=== PATIENT | female | born 1965 | race Caucasian/White ===

== ENCOUNTER 2018-05-07 19:01 | Emergency (ER) | payer BC ==
[2018-05-07 20:41] LABS: Absolute Lymphocytes (CBC) 3.1 K/uL (0.7-4.9); Absolute Monocytes 0.6 K/uL (0.1-1.3); Absolute Neutrophil 5.8 K/uL (1.8-8.0); Basophils % 0.8 % (0-1.3); Eosinophils % 2.3 % (0-4.4); Hematocrit 41.8 % (36.0-45.0); Lymphocytes % 31.7 % (15.3-44.8); MCH 29.3 pg (27.0-35.0); MCV 87.4 fL (80-100); MPV 8.1 fL (7.6-11.3); Monocytes % 6.3 % (3.3-12.3); RBC Red Blood Cell Count 4.78 M/uL (3.86-4.86)
[2018-05-07 20:43] LABS: Protime INR 0.85
[2018-05-07 20:57] LABS: Urine Blood NEGATIVE (NEG); Urine Glucose NEGATIVE (NEG); Urine Protein NEGATIVE (NEG); Urine Specific Gravity >1.030 (1.005-1.030); Urine pH 5.5 (5.0-7.0)
[2018-05-07 21:00] LABS: Albumin 3.7 g/dL (3.4-5.0); Bilirubin Direct 0.1 mg/dL (0-0.2); Bilirubin Total 0.3 mg/dL (0.2-1.0); Magnesium 2.1 mg/dL (1.8-2.4); Potassium 3.6 mmol/L (3.5-5.1); Protein, Total 7.5 g/dL (6.4-8.2)
[2018-05-07 21:04] LABS: Urine Bacteria 20-50 /HPF (<20); Urine Culture Reflex Order REFLEXED; Urine RBC <5 /HPF (NONE SEEN)
--- NOTE | 2018-05-07 22:26 | RAD REPORT ---
EXAM DESCRIPTION: RAD - Chest Pa And Lat (2 Views) - 05/07/2018 9:55 pm CLINICAL HISTORY: Shortness of breath, inhalation injury COMPARISON: August 2010 TECHNIQUE: PA and lateral views of the chest were obtained. FINDINGS: The lungs are clear. Lung markings are mildly prominent as a baseline. Heart size is norm al and central vasculature is within normal limits. No pleural effusion or pneumothorax seen. No ac [place] bony finding noted. No aortic abnormality. IMPRESSION: No acute cardiopulmonary process. No significant change from comparison.
--- NOTE | 2018-05-07 23:26 | ER ---
Nurse's Notes [facility] Name: Pilar Preston Age: 53 yrs Sex: Female : 1965 Arrival Date: 05/07/2018 Time: 19:05 Bed 19 Private MD: Javier Renteria T Diagnosis: shortness of breath Presentation: 05/07 19:22 Presenting complaint: Patient states: Reports SOB and sore throat that started 1 week aj ago. Patient reports that she is worried she may have inhaled bathroom clearer fumes 1 week ago. Presented with 2 drinks to triage with steady gait. Voice is clear. Transition of care: patient was not received from another setting of care. Onset of symptoms was April 28, 2018. Risk Assessment: Do you want to hurt yourself or someone else? Patient reports no desire to harm self or others. Initial Sepsis Screen: Does the patient meet any 2 criteria? No. Patient's initial sepsis screen is negative. Does the patient have a suspected source of infection? No. Patient's initial sepsis screen is negative. Care prior to arrival: None. 19:22 Method Of Arrival: Ambulatory 19:22 Acuity: FRANKLIN 4 aj Triage Assessment: 19:23 General: Appears in no apparent distress. comfortable, Behavior is calm, cooperative, aj appropriate for age. Pain: Denies pain. Neuro: Level of Consciousness is awake, alert, obeys commands, Oriented to person, place, time, situation, Appropriate for age. Respiratory: Reports shortness of breath Airway is patent Respiratory effort is even, unlabored, Respiratory pattern is regular, symmetrical. Derm: Skin is intact, is healthy with good turgor, Skin is pink, warm \\T\\ dry. normal. 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 - Social history:: Smoking status: Patient uses tobacco products, smokes one-half pack cigarettes per day. - Ebola Screening: : Patient negative for fever greater than or equal to 101.5 degrees Fahrenheit, and additional compatible Ebola Virus Disease symptoms Patient denies exposure to infectious person Patient denies travel to an Ebola-affected area in the 21 days before illness onset No symptoms or risks identified at this time. Screenin:41 Abuse screen: Denies threats or abuse. Nutritional screening: No deficits noted. tl2 Tuberculosis screening: No symptoms or risk factors identified. Fall Risk None identified. Assessment: 19:30 General: Appears in no apparent distress. comfortable, Behavior is calm, cooperative, tl2 appropriate for age. General: Pt reports cleaning with [employer] 1 week ago and she feels like she may have chemical pneumonia. Denies pain or coughing, states "It just feels weird when I breathe". Pain: Denies pain. Neuro: Level of Consciousness is awake, alert, obeys commands, Oriented to person, place, time, situation. Cardiovascular: Denies chest pain, Heart tones S1 S2 present. Respiratory: Reports shortness of breath Airway is patent Respiratory effort is even, unlabored, Respiratory pattern is regular, symmetrical, Breath sounds are clear bilaterally. Denies cough, labored breathing. GI: No signs and/or symptoms were reported involving the gastrointestinal system. : No signs and/or symptoms were reported regarding the genitourinary system. Derm: Skin is pink, warm \\T\\ dry. 20:30 Reassessment: Patient appears in no apparent distress at this time. Patient and/or tl2 family updated on plan of care and expected duration. Pain level reassessed. Patient is alert, oriented x 3, equal unlabored respirations, skin warm/dry/pink. 21:34 Reassessment: Patient appears in no apparent distress at this time. Patient and/or tl2 family updated on plan of care and expected duration. Pain level reassessed. Patient is alert, oriented x 3, equal unlabored respirations, skin warm/dry/pink. awaiting lab results. 22:57 Reassessment: Patient appears in no apparent distress at this time. Patient and/or tl2 family updated on plan of care and expected duration. Pain level reassessed. Patient is alert, oriented x 3, equal unlabored respirations, skin warm/dry/pink. Pending dispo. 23:38 Reassessment: Patient appears in no apparent distress at this time. Patient and/or tl2 family updated on plan of care and expected duration. Pain level reassessed. Patient is alert, oriented x 3, equal unlabored respirations, skin warm/dry/pink. pt verbalized understanding of discharge instructions, need for follow up and prescription usage. Vital Signs: 19:23 BP 154 / 72; Pulse 85; Resp 20; Temp 97.0; Pulse Ox 98% on R/A; Weight 101.6 kg; Height aj 5 ft. 1 in. (154.94 cm); 20:45 BP 121 / 68; Pulse 68; Resp 18; Pulse Ox 98% on R/A; tl2 21:34 BP 107 / 72; Pulse 70; Resp 18; Pulse Ox 98% on R/A; tl2 22:57 BP 118 / 81; Pulse 72; Resp 18; Pulse Ox 97% on R/A; tl2 19:23 Body Mass Index 42.32 (101.60 kg, 154.94 cm) ED Course: 19:05 Patient arrived in ED. as 19:06 Javier Renteria MD is Private Physician. as 19:23 Triage completed. aj 19:23 Arm band placed on right wrist. Patient placed in an exam room. aj 19:30 Halley Srinivasan RN is Primary Nurse. tl2 19:35 Davidson Palmer MD is Attending Physician. wa 20:00 Inserted saline lock: 22 gauge in left antecubital area, using aseptic technique. Blood tl2 collected. 20:41 Patient has correct armband on for positive identification. Placed in gown. Bed in low tl2 position. Call light in reach. Side rails up X 1. Adult w/ patient. 21:47 X-ray completed. Patient tolerated procedure well. ml 21:48 Chest Pa And Lat (2 Views) XRAY In Process Unspecified. EDMS 23:25 Quinten Escobedo MD is Referral Physician. wa 23:38 No provider procedures requiring assistance completed. IV discontinued, intact, tl2 bleeding controlled, No redness/swelling at site. Pressure dressing applied. Administered Medications: No medications were administered Outcome: 23:25 Discharge ordered by . wa 23:38 Discharged to home ambulatory, with family. tl2 23:38 Condition: stable 23:38 Discharge instructions given to patient, family, Instructed on discharge instructions, follow up and referral plans. medication usage, Demonstrated understanding of instructions, follow-up care, medications, Prescriptions given X 1. 23:40 Patient left the ED. tl2 Signatures: Dispatcher [employer] Radha Petersen, ADITYA RN Patricia Abbott Melissa ml Knox, Taylor, RN RN tl2 Davidson Palmer MD MD wa
--- NOTE | 2018-05-07 23:26 | EDPHYS ---
Physician Documentation [facility] Name: Pilar Preston Age: 53 yrs Sex: Female : 1965 Arrival Date: 05/07/2018 Time: 19:05 Bed 19 Private MD: Javier Renteria T ED Physician Davidson Palmer HPI: 05/07 20:05 This 53 yrs old Female presents to ER via Ambulatory with complaints of Lung wa Pain. 20:05 The patient has shortness of breath at rest, with light activity, states inhaled strong wa household cleaning agent a week ago and has been experiencing burning in chest with breathing. today feels weak. feels like cannot get enough air. c/o needing the prop head up to sleep x several months as laying flat feels like something sitting on chest. also c/o dyspnea with minimal exertion but denies pain with exertion. denies cough, fever, or dizziness. denies chest pain at the moment. denies leg swelling or pain. Onset: The symptoms/episode began/occurred 1 week(s) ago. Duration: The symptoms are continuous, and are steadily getting worse. The patient's shortness of breath is aggravated by exertion, is alleviated by rest. Associated signs and symptoms: Pertinent positives: Pertinent negatives: non-productive cough, productive cough, diaphoresis, dizziness, fever, vomiting. Severity of symptoms: At their worst the symptoms were moderate in the emergency department the symptoms are unchanged. The patient has not experienced similar symptoms in the past. The patient has not recently seen a physician. see above. 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 - Social history:: Smoking status: Patient uses tobacco products, smokes one-half pack cigarettes per day. - Ebola Screening: : Patient negative for fever greater than or equal to 101.5 degrees Fahrenheit, and additional compatible Ebola Virus Disease symptoms Patient denies exposure to infectious person Patient denies travel to an Ebola-affected area in the 21 days before illness onset No symptoms or risks identified at this time. ROS: 20:08 Constitutional: Negative for fever, chills, and weight loss, Eyes: Negative for injury, wa pain, redness, and discharge, ENT: Negative for injury, pain, and discharge, Neck: Negative for injury, pain, and swelling, Abdomen/GI: Negative for abdominal pain, nausea, vomiting, diarrhea, and constipation, Back: Negative for injury and pain, : Negative for injury, bleeding, discharge, and swelling, MS/Extremity: Negative for injury and deformity, Skin: Negative for injury, rash, and discoloration, Neuro: Negative for headache, weakness, numbness, tingling, and seizure, Psych: Negative for depression, anxiety, suicide ideation, homicidal ideation, and hallucinations. 20:08 Cardiovascular: Positive for orthopnea, paroxysmal nocturnal dyspnea, Negative for chest pain, edema, palpitations. 20:08 Respiratory: Positive for dyspnea on exertion, shortness of breath, Negative for cough, sputum production, wheezing. Exam: 20:09 Constitutional: This is a well developed, well nourished patient who is awake, alert, wa and in no acute distress. Head/Face: Normocephalic, atraumatic. Eyes: Pupils equal round and reactive to light, extra-ocular motions intact. Lids and lashes normal. Conjunctiva and sclera are non-icteric and not injected. Cornea within normal limits. Periorbital areas with no swelling, redness, or edema. ENT: Nares patent. No nasal discharge, no septal abnormalities noted. Tympanic membranes are normal and external auditory canals are clear. Oropharynx with no redness, swelling, or masses, exudates, or evidence of obstruction, uvula midline. Mucous membranes moist. Neck: Trachea midline, no thyromegaly or masses palpated, and no cervical lymphadenopathy. Supple, full range of motion without nuchal rigidity, or vertebral point tenderness. No Meningismus. Chest/axilla: Normal chest wall appearance and motion. Nontender with no deformity. No lesions are appreciated. Cardiovascular: Regular rate and rhythm with a normal S1 and S2. No gallops, murmurs, or rubs. Normal PMI, no JVD. No pulse deficits. Respiratory: Lungs have equal breath sounds bilaterally, clear to auscultation and percussion. No rales, rhonchi or wheezes noted. No increased work of breathing, no retractions or nasal flaring. Abdomen/GI: Soft, non-tender, with normal bowel sounds. No distension or tympany. No guarding or rebound. No evidence of tenderness throughout. Back: No spinal tenderness. No costovertebral tenderness. Full range of motion. Skin: Warm, dry with normal turgor. Normal color with no rashes, no lesions, and no evidence of cellulitis. MS/ Extremity: Pulses equal, no cyanosis. Neurovascular intact. Full, normal range of motion. Neuro: Awake and alert, GCS 15, oriented to person, place, time, and situation. Cranial nerves II-XII grossly intact. Motor strength 5/5 in all extremities. Sensory grossly intact. Cerebellar exam normal. Normal gait. Psych: Awake, alert, with orientation to person, place and time. Behavior, mood, and affect are within normal limits. Vital Signs: 19:23 BP 154 / 72; Pulse 85; Resp 20; Temp 97.0; Pulse Ox 98% on R/A; Weight 101.6 kg; Height aj 5 ft. 1 in. (154.94 cm); 20:45 BP 121 / 68; Pulse 68; Resp 18; Pulse Ox 98% on R/A; tl2 21:34 BP 107 / 72; Pulse 70; Resp 18; Pulse Ox 98% on R/A; tl2 22:57 BP 118 / 81; Pulse 72; Resp 18; Pulse Ox 97% on R/A; tl2 19:23 Body Mass Index 42.32 (101.60 kg, 154.94 cm) MDM: 19:35 Patient medically screened. pr 20:09 Differential diagnosis: obese, female smoker with symptoms of SIENNA. will eval to r/o wa acute cardiopulm etiology. will have f/u with cardiology for r/o ACS if work up negative in ED. 23:23 Data reviewed: vital signs, nurses notes, lab test result(s), EKG, radiologic studies. pr Test interpretation: by ED physician or midlevel provider: EKG: HR 70. nml axis. no acute ischemic abnml noted. 23:24 Test interpretation: by ED physician or midlevel provider: labs noted within nml pr limits. nml CXR. 05/07 19:45 Order name: Magnesium; Complete Time: 21:18 pr 05/07 19:45 Order name: Basic Metabolic Panel; Complete Time: 21:18 wa 05/07 19:45 Order name: CBC with Diff; Complete Time: 21:18 pr 05/07 19:45 Order name: LFT's; Complete Time: 21:18 pr 05/07 19:45 Order name: NT PRO-BNP; Complete Time: 21:18 pr 05/07 19:45 Order name: PT-INR; Complete Time: 21:18 pr 05/07 19:45 Order name: Troponin (emerg Dept Use Only); Complete Time: 21:18 pr 05/07 19:45 Order name: EKG; Complete Time: 20:15 pr 05/07 19:45 Order name: Cardiac monitoring; Complete Time: 20:04 pr 05/07 19:45 Order name: Urine Microscopic Only; Complete Time: 21:18 pr 05/07 20:43 Order name: Urine Dipstick--Ancillary (enter results); Complete Time: 21:18 [facility] 05/07 20:43 Order name: Urine --Ancillary (enter results); Complete Time: 21:18 [facility] 05/07 21:05 Order name: Urine Culture [facility] 05/07 21:31 Order name: Chest Pa And Lat (2 Views) XRAY; Complete Time: 23:08 pr 05/07 19:45 Order name: EKG - Nurse/Tech; Complete Time: 20:40 pr 05/07 19:45 Order name: IV Saline Lock; Complete Time: 20:03 pr 05/07 19:45 Order name: Labs collected and sent; Complete Time: 20:03 pr 05/07 19:45 Order name: O2 Per Protocol; Complete Time: 20:03 pr 05/07 19:45 Order name: O2 Sat Monitoring; Complete Time: 20:03 pr 05/07 19:45 Order name: Urine Dipstick-Ancillary (obtain specimen); Complete Time: 20:40 pr Administered Medications: No medications were administered Disposition: 05/07/18 23:25 Discharged to Home. Impression: shortness of breath. - Condition is Stable. - Discharge Instructions: Shortness of Breath, [id number]. - Prescriptions for Albuterol Sulfate 90 mcg/actuation - inhale 1-2 puff by INHALATION route every 4-6 hours; 1 Inhaler. - Medication Reconciliation Form, Thank You Letter, Antibiotic Education, Prescription Opioid Use form. - Follow up: Quinten Escobedo MD; When: 1 - 2 days; Reason: Recheck today's complaints. - Notes: quit smoking. follow up with the labor relations officer for further evaluation and possible stress testing. retutn to ER immediately for worsening shortness of breath and or if you develop chest pain related to exertion Signatures: Dispatcher [employer] EDRadha Astorga RN RN aj Halley Srinivasan RN RN tl2 Davidson Palmer MD MD wa Corrections: (The following items were deleted from the chart) 23:40 23:25 05/07/2018 23:25 Discharged to Home. Impression: shortness of breath. Condition tl2 is Stable. Forms are Medication Reconciliation Form, Thank You Letter, Antibiotic Education, Prescription Opioid Use. Follow up: Quinten Escobedo; When: 1 - 2 days; Reason: Recheck today's complaints. wa
[2018-05-07 23:53] VITALS: TEMP 97
[2018-05-07 23:56] VITALS: BP 118/81; O2SAT 97
--- NOTE | 2018-05-08 14:37 | EKG ---
Test Date: 2018-05-07 Test Time: 20:33:37 Medical Director Of Hospice: XI MEASUREMENT RESULTS: Intervals: Rate: 70 GA: 166 QRSD: 76 QT: 392 QTc: 423 Union: P: 59 GA: 166 QRS: 67 T: 17 INTERPRETIVE STATEMENTS: Normal sinus rhythm Normal ECG Compared to ECG 08/15/2010 16:05:31 no significant change from previous ECG Electronically Signed On 05-08-18 14:36:08 CDT by iLban Ness
== END 2018-05-07 23:40 | disposition home or self-care (01) ==
LOC: ER 19:01
DX: R06.02 Shortness of breath (principal); F17.210 Nicotine dependence, cigarettes, uncomplicated
CPT/HCPCS: 36415; 71046; 80048; 80076; 81003; 81015; 81025; 83735; 83880; 84484; 85025; 85610; 87086; 87088; 93005; 99284

== ENCOUNTER 2018-08-05 12:19 | Emergency (ER) | payer BC ==
[2018-08-05 13:41] LABS: Absolute Lymphocytes (CBC) 2.5 K/uL (0.7-4.9); Absolute Monocytes 0.4 K/uL (0.1-1.3); Absolute Neutrophil 4.8 K/uL (1.8-8.0); Basophils % 0.1 % (0-1.3); Eosinophils % 2.7 % (0-4.4); Hematocrit 43.1 % (36.0-45.0); Lymphocytes % 31.7 % (15.3-44.8); MCH 29.5 pg (27.0-35.0); MCV 86.8 fL (80-100); MPV 8.6 fL (7.6-11.3); Monocytes % 5.2 % (3.3-12.3); RBC Red Blood Cell Count 4.96 M/uL (3.86-4.86)
[2018-08-05 13:44] LABS: BUN Blood Urea Nitrogen 14 mg/dL (7-18); Bicarbonate 29 mmol/L (21-32); Glucose Level 92 mg/dL (74-106); Magnesium 2.2 mg/dL (1.8-2.4); Sodium Level 143 mmol/L (136-145); Troponin (Emerg Dept Use Only) < 0.02 ng/mL (0.0-0.045)
--- NOTE | 2018-08-05 14:03 | RAD REPORT ---
EXAM DESCRIPTION: RAD - Chest Single View - 08/05/2018 1:25 pm CLINICAL HISTORY: Chest pain COMPARISON: April 2018 TECHNIQUE: AP portable chest image was obtained 1313 hours . FINDINGS: Lungs are clear. Heart and vasculature are normal. No measurable pleural effusion and no p neumothorax. No acute bony abnormality seen. No acute aortic findings suspected. IMPRESSION: No acute cardiopulmonary process. No significant change from comparison.
--- NOTE | 2018-08-05 14:13 | ER ---
Nurse's Notes [facility] Name: Pilar Preston Age: 53 yrs Sex: Female : 1965 Arrival Date: 08/05/2018 Time: 12:20 Bed 24 Private MD: Diagnosis: Chest pain, unspecified Presentation: 08/05 12:27 Presenting complaint: Patient states: " I was getting out of the shower and I picked up ph my granddaughter and I got a sharp pain in the center of my chest." Pt reports that pain is worse w/ inspiration, denies palpitations, N/V. Transition of care: patient was not received from another setting of care. Onset of symptoms was August 05, 2018. Risk Assessment: Do you want to hurt yourself or someone else? Patient reports no desire to harm self or others. 12:27 Method Of Arrival: Ambulatory ph 12:27 Acuity: FRANKLIN 3 ph 13:35 Initial Sepsis Screen: Does the patient meet any 2 criteria? No. Patient's initial aj1 sepsis screen is negative. Does the patient have a suspected source of infection? No. Patient's initial sepsis screen is negative. Care prior to arrival: None. 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 - Social history:: Smoking status: Patient uses tobacco products, smokes one-half pack cigarettes per day. - Ebola Screening: : No symptoms or risks identified at this time. Screenin:45 Abuse screen: Denies threats or abuse. Denies injuries from another. Nutritional aj1 screening: No deficits noted. Tuberculosis screening: No symptoms or risk factors identified. 14:41 Fall Risk None identified. aj1 Assessment: 12:45 General: Appears in no apparent distress. comfortable, Behavior is calm, cooperative, aj1 appropriate for age. Pain: Complains of pain in mid-sternal area Pain does not radiate. Pain currently is 5 out of 10 on a pain scale. Quality of pain is described as sharp, Is intermittent, Aggravated by deep breathing. Neuro: Level of Consciousness is awake, alert, obeys commands, Oriented to person, place, time, situation, Speech is normal, Facial symmetry appears normal. Cardiovascular: Reports chest pain, Denies nausea, palpitations, vomiting, Heart tones S1 S2 present Patient's skin is warm and dry. Rhythm is sinus rhythm. Respiratory: Airway is patent Respiratory effort is even, unlabored, Respiratory pattern is regular, symmetrical, Breath sounds are clear bilaterally. GI: No signs and/or symptoms were reported involving the gastrointestinal system. : No signs and/or symptoms were reported regarding the genitourinary system. EENT: No signs and/or symptoms were reported regarding the EENT system. Derm: No signs and/or symptoms reported regarding the dermatologic system. Skin is pink, warm \\T\\ dry. normal. Musculoskeletal: No signs and/or symptoms reported regarding the musculoskeletal system. Circulation, motion, and sensation intact. 13:34 Reassessment: Patient appears in no apparent distress at this time. No changes from aj1 previously documented assessment. Patient and/or family updated on plan of care and expected duration. Pain level reassessed. Patient is alert, oriented x 3, equal unlabored respirations, skin warm/dry/pink. 14:44 Reassessment: Patient appears in no apparent distress at this time. No changes from aj1 previously documented assessment. Patient and/or family updated on plan of care and expected duration. Pain level reassessed. Patient is alert, oriented x 3, equal unlabored respirations, skin warm/dry/pink. Vital Signs: 12:30 BP 125 / 65; Pulse 70; Resp 18; Temp 97.8; Pulse Ox 97% on R/A; Weight 101.6 kg; Height ph 5 ft. 1 in. (154.94 cm); Pain 5/10; 13:34 BP 127 / 72; Pulse 66; Resp 18; Pulse Ox 100% on R/A; aj1 14:43 BP 132 / 76; Pulse 69; Resp 18; Pulse Ox 99% on R/A; aj1 12:30 Body Mass Index 42.32 (101.60 kg, 154.94 cm) ph ED Course: 12:20 Patient arrived in ED. as 12:30 Triage completed. ph 12:32 Arm band placed on. EKG completed in triage. Results shown to MD. ph 12:41 Nickie Barboza RN is Primary Nurse. aj1 12:45 Jerad Velasco MD is Attending Physician. 12:45 No provider procedures requiring assistance completed. Patient maintains SpO2 aj1 saturation greater than 95% on room air. 13:05 math and sciences department chair on. Pulse ox on. NIBP on. jp3 13:10 Warm blanket given. Pillow given. jp3 13:10 Initial lab(s) drawn, by me, sent to lab. EKG done, by copier technician. reviewed by Jerad Velasco MD. Inserted saline lock: 22 gauge in right forearm, using aseptic technique. Blood collected. 13:21 Placed in gown. Bed in low position. Call light in reach. Side rails up X 1. jp3 13:22 Basic Metabolic Panel Sent. jp3 13:22 CBC with Diff Sent. jp3 13:22 Magnesium Sent. jp3 13:22 Troponin (emerg Dept Use Only) Sent. jp3 13:24 X-ray completed. Portable x-ray completed in exam room. Patient tolerated procedure az well. 13:25 XRAY Chest (1 view) In Process Unspecified. EDMS 14:42 IV discontinued, intact, bleeding controlled, No redness/swelling at site. Pressure aj1 dressing applied. Administered Medications: No medications were administered Outcome: 14:13 Discharge ordered by . 14:42 Discharged to home ambulatory. aj1 14:42 Condition: good 14:42 Discharge instructions given to patient, Instructed on discharge instructions, follow up and referral plans. medication usage, Demonstrated understanding of instructions, follow-up care, medications, Prescriptions given X 1. 15:06 Patient left the ED. aj1 Signatures: Dispatcher [employer] EDMS Nickie aBrboza RN RN aj1 Patricia James Patricia, ADIYTA RN Jerad Velasco MD MD Michael Bales jp3 Arline Roldan
--- NOTE | 2018-08-05 14:13 | EDPHYS ---
Physician Documentation [facility] Name: Pilar Preston Age: 53 yrs Sex: Female : 1965 Arrival Date: 08/05/2018 Time: 12:20 Bed 24 Private MD: ED Physician Jerad Velasco HPI: 08/05 19:06 This 53 yrs old Female presents to ER via Ambulatory with complaints of Chest gs Pain, Shortness Of Breath. 19:06 The patient or guardian reports chest pain that is located primarily in the anterior gs chest wall. Onset: acutely, just prior to arrival. The pain does not radiate. Associated signs and symptoms: Pertinent positives: shortness of breath. The chest pain is described as dull. Duration: The patient or guardian reports a single episode, that is now resolved. Modifying factors: The symptoms are alleviated by nothing. the symptoms are aggravated by nothing. Severity of pain: At its worst the pain was moderate in the emergency department the pain has resolved and did so earlier today. The patient has not experienced similar symptoms in the past. The patient has not recently seen a physician. very brief singular episode of chest pain. 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 - Social history:: Smoking status: Patient uses tobacco products, smokes one-half pack cigarettes per day. - Ebola Screening: : No symptoms or risks identified at this time. ROS: 19:06 All other systems are negative. gs Exam: 19:06 Head/Face: Normocephalic, atraumatic. Eyes: Pupils equal round and reactive to light, gs extra-ocular motions intact. Lids and lashes normal. Conjunctiva and sclera are non-icteric and not injected. Cornea within normal limits. Periorbital areas with no swelling, redness, or edema. ENT: Nares patent. No nasal discharge, no septal abnormalities noted. Tympanic membranes are normal and external auditory canals are clear. Oropharynx with no redness, swelling, or masses, exudates, or evidence of obstruction, uvula midline. Mucous membranes moist. Neck: Trachea midline, no thyromegaly or masses palpated, and no cervical lymphadenopathy. Supple, full range of motion without nuchal rigidity, or vertebral point tenderness. No Meningismus. Chest/axilla: Normal chest wall appearance and motion. Nontender with no deformity. No lesions are appreciated. Cardiovascular: Regular rate and rhythm with a normal S1 and S2. No gallops, murmurs, or rubs. Normal PMI, no JVD. No pulse deficits. Respiratory: Lungs have equal breath sounds bilaterally, clear to auscultation and percussion. No rales, rhonchi or wheezes noted. No increased work of breathing, no retractions or nasal flaring. Abdomen/GI: Soft, non-tender, with normal bowel sounds. No distension or tympany. No guarding or rebound. No evidence of tenderness throughout. Back: No spinal tenderness. No costovertebral tenderness. Full range of motion. Skin: Warm, dry with normal turgor. Normal color with no rashes, no lesions, and no evidence of cellulitis. MS/ Extremity: Pulses equal, no cyanosis. Neurovascular intact. Full, normal range of motion. Neuro: Awake and alert, GCS 15, oriented to person, place, time, and situation. Cranial nerves II-XII grossly intact. Motor strength 5/5 in all extremities. Sensory grossly intact. Cerebellar exam normal. Normal gait. 19:06 Constitutional: The patient appears alert, awake. 19:06 ECG was reviewed by the Attending Physician. Vital Signs: 12:30 BP 125 / 65; Pulse 70; Resp 18; Temp 97.8; Pulse Ox 97% on R/A; Weight 101.6 kg; Height ph 5 ft. 1 in. (154.94 cm); Pain 5/10; 13:34 BP 127 / 72; Pulse 66; Resp 18; Pulse Ox 100% on R/A; aj1 14:43 BP 132 / 76; Pulse 69; Resp 18; Pulse Ox 99% on R/A; aj1 12:30 Body Mass Index 42.32 (101.60 kg, 154.94 cm) ph MDM: 12:59 Patient medically screened. 14:11 Data reviewed: vital signs, lab test result(s), EKG, radiologic studies. Counseling: I gs had a detailed discussion with the patient and/or guardian regarding: the historical points, exam findings, and any diagnostic results supporting the discharge/admit diagnosis, lab results, radiology results, the need for outpatient follow up. 19:06 Differential diagnosis: coronary artery disease chest wall pain, pneumonia, gs pneumothorax. Response to treatment: the patient's symptoms have resolved after treatment, the patient's pain is gone. 08/05 12:47 Order name: Basic Metabolic Panel; Complete Time: 13:47 gs 08/05 12:47 Order name: CBC with Diff; Complete Time: 13:47 08/05 12:47 Order name: Magnesium; Complete Time: 13:47 gs 08/05 12:47 Order name: Troponin (emerg Dept Use Only); Complete Time: 13:47 gs 08/05 12:47 Order name: XRAY Chest (1 view); Complete Time: 14:11 08/05 12:47 Order name: EKG; Complete Time: 12:47 08/05 12:47 Order name: Cardiac monitoring; Complete Time: 12:48 08/05 12:47 Order name: EKG - Nurse/Tech; Complete Time: 12:48 08/05 12:47 Order name: IV Saline Lock; Complete Time: 13:22 gs 08/05 12:47 Order name: Labs collected and sent; Complete Time: 13:22 08/05 12:47 Order name: O2 Per Protocol; Complete Time: 12:48 08/05 12:47 Order name: O2 Sat Monitoring; Complete Time: 12:48 gs EC:06 Rate is 72 beats/min. Rhythm is regular. ND interval is normal. QRS interval is normal. gs T waves are Normal. No ST changes noted. Clinical impression: Normal ECG. Interpreted by me. Administered Medications: No medications were administered Disposition: 08/05/18 14:13 Discharged to Home. Impression: Chest pain, unspecified. - Condition is Stable. - Discharge Instructions: Nonspecific Chest Pain. - Prescriptions for Naprosyn 500 mg Oral Tablet - take 1 tablet by ORAL route 2 times per day As needed take with food; 30 tablet. - Medication Reconciliation Form, Thank You Letter, Antibiotic Education, Prescription Opioid Use form. - Follow up: Private Physician; When: 2 - 3 days; Reason: Re-evaluation by your physician. Signatures: Dispatcher [facility] HospitalRocawearUNM Cancer CenterNickie Milian RN RN aj1 Claire Del Rosario RN RN ph VelascoJerad MD MD gs Corrections: (The following items were deleted from the chart) 15:06 14:13 08/05/2018 14:13 Discharged to Home. Impression: Chest pain, unspecified. aj1 Condition is Stable. Forms are Medication Reconciliation Form, Thank You Letter, Antibiotic Education, Prescription Opioid Use. Follow up: Private Physician; When: 2 - 3 days; Reason: Re-evaluation by your physician. gs
[2018-08-05 15:38] VITALS: TEMP 97.8
[2018-08-05 15:41] VITALS: BP 132/76; O2SAT 99
--- NOTE | 2018-08-05 15:45 | EKG ---
Test Date: 2018-08-05 Test Time: 12:35:27 High Speed Operator: ANABEL MEASUREMENT RESULTS: Intervals: Rate: 72 [place]: 164 QRSD: 86 QT: 378 QTc: 413 [place]: P: 53 [place]: 164 QRS: 76 T: 35 INTERPRETIVE STATEMENTS: Normal sinus rhythm Normal ECG Compared to ECG 05/07/2018 20:33:37 No significant changes Electronically Signed On 08-05-18 15:44:25 CDT by Liban Ness
== END 2018-08-05 15:06 | disposition home or self-care (01) ==
LOC: ER 12:19
DX: R07.9 Chest pain, unspecified (principal)
CPT/HCPCS: 36415; 71045; 80048; 83735; 84484; 85025; 93005; 99285

== ENCOUNTER 2022-08-31 20:09 | Emergency (ER) | payer BC ==
--- OUTSIDE RECORDS SUMMARY | 2022-08-31 20:12 | XMS REPORT | Continuity of Care Document ---
:1965 Author Organization [facility] t Address [address] [place] [address] Care Team Providers Name Role Phone TRE SCOTT Primary Care Physician Unavailable GORDON MILLS Attending Clinician Unavailable RADIOLOGY Attending Clinician Unavailable Gordon Mills MD Attending Clinician AG RIVERA Attending Clinician Unavailable SHELLEY ROJAS Attending Clinician Unavailable GORDON MILLS Admitting Clinician Unavailable Payers Payer Name Policy Type Policy Number Effective Date Expiration Date S yemi [id number] 2008 00:00:00 OUT OF STATE Problems Condition Condition Condition Status Onset Resolution Last Treating Co mments Source Name Details Category Date Date Treatment Clinician Date Heartburn Heartburn Disease Active 2019-10 Overview: Univers 1-17 Formattin ity of 00:00: g of this [place] 00 note Medical might be Branch different from the original. Added automatic ally from request for surgery [id number] Diverticul Diverticul Disease Active U nivers itis itis 15 ity of 00:00: [place] 00 Medical Branch Morbid Morbid Disease Active Univers obesity obesity 915 ity of with body [place] body [place] mass index mass index 00 Me dical of of Branch 40.0-49.9 40.0-49.9 Allergies, Adverse Reactions, Alerts Allergy Allergy Status Severity Reaction(s) Onset Inactive Treating Comm ents Source Name Type Date Date Clinician No Known DA Active U 2017-10 [facility] 2[facility]14 [place] [facility] No Known DA Active U 2017-10 [facility] Allergie 10-12 [facility] 00:00: Orthope 00 dic Hospita l No Known DA Active U 2017-10 [facility] Allergie 10-09 [place] [facility] 00:00: Orthope 00 dic Hospita [facility] No Known DA Active U [facility] Allergie 04-12 [facility] 00:00: Orthope 00 dic Hospita l NO KNOWN Drug Active Univers ALLERGIE Class ity of S [facility] Social History Social Habit Start Date Stop Date Quantity Comments Source History [facility] University o f Alcohol Std Drinks [place] [facility] History [facility] o f Alcohol Binge [place] [facility] History [facility] o f Alcohol Comment [place] [facility] ical [facility] Exposure to Yes University of SARS-CoV-2 (event) [facility] Branch History of tobacco Cigarette Smoker University of use [facility] Branch Alcohol intake 2021-09-27 2021-09-27 Lifetime University of 00:00:00 00:00:00 non-drinker [place] [facility] (finding) Branch History SDOH 2019-08-22 2019-08-22 1 University o f Alcohol [facility]:00[facility]00 [facility] C[facility] smoked 2019-06-22 2019-06-22 Univers ity of current (pack per 00:00:00 00:00:00 [facility]) - Reported Branch Tobacco use and 2019-06-22 2019-06-22 Never used Universit y of exposure 00:00:00 00:00:00 [facility] Sex Ass[birth year] At [birth year] Universit y of 00:00:00 00:00:00 [facility] Smoking Status Start Date Stop Date Source Current every day smoker 2019-06-22 00:00[facility] Ordered Filled Start Stop Current Ordering Indication Dosage Frequency Signature Comments Components Source Medication Medication Date Date Medication? Clinician (SIG) Name Name PANTOPRAZOL Yes [id number] TAKE 1 Univers E 20 mg EC 9-07 TABLET BY ity of tablet 00:00: MOUTH [place] 00 EVERY DAY Medical Branch PANTOPRAZOL Yes [id number] TAKE 1 Univers E 20 mg EC 9-07 TABLET BY ity of tablet 00:00: MOUTH [place] 00 EVERY DAY Medical Branch escitalopra 2019-10 Yes 10mg Take 10 mg Univers m oxalate 2-07 by mouth ity of 10 mg 00:00: every [place] tablet 00 morning. Medical Branch terbinafine 2019-10 Yes 250mg Take 250 U nivers HCL 250 mg 2-07 mg by ity of tablet 00:00: mouth [place] 00 daily. Medical Branch escitalopra 2019-10 Yes 10mg Take 10 mg Univers m oxalate 2-07 by mouth ity of 10 mg 00:00: every [place] tablet 00 morning. Medical Branch terbinafine 2019-10 Yes 250mg Take 250 U nivers HCL 250 mg 2-07 mg by ity of tablet 00:00: mouth [place] 00 daily. Medical Branch QUEtiapine Yes 6.25mg Take 6.25 Univers 25 mg 9-17 mg by ity of tablet 00:00: mouth [place] 00 daily. Medical Branch QUEtiapine Yes 6.25mg Take 6.25 Univers 25 mg 9-17 mg by ity of tablet 00:00: mouth [place] 00 daily. Medical Branch Vital Signs Vital Name Observation Time Observation Value Comments Source Systolic blood 2021-09-27 20:42:00 116 mm[Hg] Univer sity of pressure [facility] Diastolic blood 2021-09-27 20:42:00 68 mm[Hg] [facility] 2021-09-27 20:42:00 85 [facility] Body temperature 2021-09-27 20:42:00 36.28 [facility] Respiratory rate 2021-09-27 20:42:00 16 /min [facility] Body height 2021-09-27 20:42:00 154.9 cm [facility] Body weight 2021-09-27 20:42:00 99.61 kg [facility] BMI 2021-09-27 20:42:00 41.49 kg/m2 [facility] Oxygen saturation in 2021-09-27 20:42:00 96 /min [facility] Arterial blood by [facility] Pulse oximetry Branch Procedures Procedure Date / Time Performed Performing Clinician Sour e US ABDOMEN LIMITED 2021-10-17 19:17:30 [facility] CONSENT/REFUSAL FOR 2021-10-17 18:35:32 Doctor Unassigned, No [facility] DIAGNOSIS AND Name [facility] TREATMENT ASSIGNMENT OF BENEFITS 2021-10-17 18:35:18 Doctor Unassigned, No [facility] Encounters Start End Encounter Admission Attending Care Care Encounter Source Date/Time Date/Time Type Type Clinicians Facility Department ID 2021-08-06 Emergency [facility] [id number] [facility]-06 Outpatient R GINO [facility] LAZARO [id number] Univers 06:29:11 GORDON juan [facility] 2022-09-29 2022-09-29 Outpatient R RADIOLOGY [facility] [id number] Univers [facility]:00[facility]00 [facility] 2021-10-17 2021-10-17 Outpatient R GINO [facility] [id number] Univers 12:35:22 23:59:00 GORDON juan [facility] 2021-10-17 2021-10-17 [facility] [id number] Univers 12:35:22 23:59:00 Encounter [id number] [id number] [facility] [id number] [facility] 806 Branch 2021-09-27 2021-09-27 Outpatient R GINO [facility] [id number] Univers 14:45:00 15:17:57 [facility] 2021-09-27 2021-09-27 [facility] [id number] Univers 14:45:00 15:17:57 Visit Gordon ACEVEDO [id number] i ty [id number] [place] [id number] Ar dical [address] 2021-06-03 2021-06-03 [facility] [id number] Univers 00:00:00 00:00:00 Gordon Acevedo [id number] i [place] [id number] [place] [id number] Ar dic[address] 2021-04-28 2021-04-28 Outpatient R MIGUEL [facility] [id number] Univers 13:00:00 13:00:00 [facility] 2021-03-22 2021-03-22 Outpatient R GINO [facility] [id number] Univers 15:30:00 15:30:00 GORDON [facility] 2020-10-22 2020-10-22 Outpatient R RADIOLOGY [facility] [id number] Univers 00:00:00 00:00:00 [facility] 2020-09-20 2020-09-20 Outpatient R GINO [facility] [id number] Univers 09:30:00 09:30:00 GORDON karissa [facility] 2020-09-13 2020-09-13 Outpatient R GINO [facility] [id number] Univers 10:30:00 10:30:00 GORDON karissa [facility] 2020-09-01 2020-09-01 Outpatient R GINO [facility] [id number] Univers 13:45:00 13:45:00 GORDON karissa [facility] 2020-05-31 2020-05-31 Outpatient R GINO [facility] [id number] Univers 09:30:00 09:30:00 GORDON [facility] 2020-04-27 2020-04-27 Outpatient R BOB [facility] [id number] Univers 10:40:00 10:40:00 SHELLEY juan [facility] Results This patient has no known results.
--- NOTE | 2022-08-31 20:25 | EDPHYS ---
Physician Documentation [facility] Name: Pilar Preston Age: 57 yrs Sex: Female : 1965 Arrival Date: 08/31/2022 Time: 20:12 Bed 10 Private MD: ED Physician Jeovanny Harris HPI: 08/31 20:24 This 57 yrs old Female presents to ER via Unassigned with complaints of Dental pm1 pain. 20:24 Onset: The symptoms/episode began/occurred 2 week(s) ago. pm1 20:24 The patient presents with pain. The problem is located in the upper left second molar. pm1 Duration: The symptoms are continuous. Modifying factors: The symptoms are alleviated by over the counter medications, NSAIDs, but has not been helping for the past three days. Associated signs and symptoms: Pertinent negatives: fever, inability to eat. Severity of symptoms: in the emergency department the symptoms are unchanged. The patient has not experienced similar symptoms in the past. The patient has not recently seen a physician, has an appointment scheduled, on Sunday with her dentist. Patient has been taking ibuprofen for the past 2 weeks to manage her dental pain. However for the past 3 days her pain has not been resolved with the ibuprofen. Contacted her dentist he wrote in a prescription for penicillin. Patient has an appointment with her dentist on Sunday for evaluation. Patient is here primarily for pain management, since the ibuprofen is no longer helping. Patient has been taking some leftover Tylenol four with some relief. Patient reports she has 3 pills of that medication left. Historical: - Allergies: 20:29 No Known Allergies; tw5 - Home Meds: 20:29 Seroquel Oral [Active]; tw5 - PMHx: 20:29 None; tw5 - PSHx: 20:29 None; tw5 - Immunization history:: Flu vaccine is not up to date. - Social history:: Smoking status: Patient reports the use of cigarette tobacco products, smokes one-half pack cigarettes per day. ROS: 20:29 Constitutional: Negative for fever, chills, and weight loss, Eyes: Negative for injury, pm1 pain, redness, and discharge. 20:29 Neck: Negative for injury, pain, and swelling, Cardiovascular: Negative for chest pain, palpitations, and edema, Respiratory: Negative for shortness of breath, cough, wheezing, and pleuritic chest pain, MS/Extremity: Negative for injury and deformity, Skin: Negative for injury, rash, and discoloration, Neuro: Negative for headache, weakness, numbness, tingling, and seizure. 20:29 ENT: Positive for dental pain, Negative for difficulty swallowing, difficulty handling secretions, hoarseness. 20:29 All other systems are negative. Exam: 20:29 Constitutional: This is a well developed, well nourished patient who is awake, alert, pm1 and in no acute distress. Head/Face: Normocephalic, atraumatic. 20:29 Skin: Warm, dry with normal turgor. Normal color with no rashes, no lesions, and no evidence of cellulitis. MS/ Extremity: Pulses equal, no cyanosis. Neurovascular intact. Full, normal range of motion. 20:29 Eyes: Exam is negative for acute changes, Periorbital structures: no acute changes, Extraocular movements: no acute changes, Conjunctiva: no acute changes, no injection. 20:29 ENT: Mouth: no acute changes, Lips: normal, moist, Oral mucosa: normal, pink and intact, moist. 20:29 Cardiovascular: Exam negative for acute changes, Rate: normal, Rhythm: regular, Pulses: no pulse deficits are appreciated. 20:29 Respiratory: Exam negative for acute changes, respiratory distress, shortness of breath. 20:29 Neuro: Exam negative for acute changes, Orientation: is normal, Mentation: is normal, Motor: is normal, moves all fours. Vital Signs: 20:25 BP 155 / 76; Pulse 85; Resp 18; Temp 98.6; Pulse Ox 100% on R/A; Weight 92.99 kg; tw5 Height 5 ft. 1 in. (154.94 cm); Pain 9/10; 20:25 Body Mass Index 38.73 (92.99 kg, 154.94 cm) tw5 MDM: 20:15 Patient medically screened. pm1 20:23 Counseling: I had a detailed discussion with the patient and/or guardian regarding: the pm1 historical points, exam findings, and any diagnostic results supporting the discharge/admit diagnosis, the need for outpatient follow up, for definitive care, a dentist, to return to the emergency department if symptoms worsen or persist or if there are any questions or concerns that arise at home. 20:30 Data reviewed: vital signs. Data interpreted: Pulse oximetry: on room air is 100 %. pm1 Interpretation: normal. 20:30 ED course: PMPaware reviewed. pm1 Administered Medications: 20:39 Drug: morphine 4 mg Route: IM; Site: right gluteus; tp1 20:40 Follow up: Response: Medication administered at discharge. tp1 20:39 Drug: Zofran (Ondansetron) 4 mg Route: PO; tp1 20:40 Follow up: Response: Medication administered at discharge. tp1 Disposition: 22:44 Co-signature as Attending Physician, Jeovanny Harris MD. rn Disposition Summary: 08/31/22 20:24 Discharge Ordered Location: Home pm1 Problem: new pm1 Symptoms: have improved pm1 Condition: Stable pm1 Diagnosis - Dental Pain pm1 Followup: pm1 - With: Emergency Department - When: As needed - Reason: Worsening of condition Followup: pm1 - With: Private Physician - When: 2 - 3 days - Reason: Recheck today's complaints, Continuance of care, Re-evaluation by your physician Discharge Instructions: - Discharge Summary Sheet pm1 - Dental Pain pm1 Forms: - Medication Reconciliation Form pm1 - Thank You Letter pm1 - Antibiotic Education pm1 - Prescription Opioid Use pm1 Prescriptions: - Tramadol 50 mg Oral Tablet - take 1 tablet by ORAL route every 8 hours as needed; 12 tablet; Refills: 0, pm1 Product Selection Permitted Signatures: Jeovanny Harris MD MD rn Aries Robins NP [employer] pm1 Esha Mendoza tw5 Esha Lemus, RN RN tp1
[2022-08-31] MEDS ORDERED: MORPHINE 4 MG/ML SYR ONE (20:32)
[2022-08-31] MEDS ORDERED: ONDANSETRON 4 MG (ODT) TAB ONE (20:32)
--- NOTE | 2022-08-31 20:42 | ER ---
Nurse's Notes [facility] Name: Pilar Preston Age: 57 yrs Sex: Female : 1965 Arrival Date: 08/31/2022 Time: 20:12 Bed 10 Private MD: Diagnosis: Dental Pain Presentation: 08/31 20:25 Chief complaint: Patient states: "I got a crown worked on and now my jaw is killing me. tw5 I wont be able to get in to see my dentist until Sunday.". Coronavirus screen: Vaccine status: Patient reports being unvaccinated. Ebola Screen: Patient negative for fever greater than or equal to 101.5 degrees Fahrenheit, and additional compatible Ebola Virus Disease symptoms Patient denies exposure to infectious person. Patient denies travel to an Ebola-affected area in the 21 days before illness onset. Initial Sepsis Screen: Does the patient meet any 2 criteria? No. Patient's initial sepsis screen is negative. Does the patient have a suspected source of infection? No. Patient's initial sepsis screen is negative. Risk Assessment: Do you want to hurt yourself or someone else? Patient reports no desire to harm self or others. Onset of symptoms is unknown. 20:25 Method Of Arrival: Ambulatory tw5 20:25 Acuity: FRANKLIN 5 tw5 Triage Assessment: 20:29 General: Appears in no apparent distress. Behavior is calm, cooperative, appropriate tw5 for age. Pain: Pain currently is 9 out of 10 on a pain scale. Historical: - Allergies: 20:29 No Known Allergies; tw5 - Home Meds: 20:29 Seroquel Oral [Active]; tw5 - PMHx: 20:29 None; tw5 - PSHx: 20:29 None; tw5 - Immunization history:: Flu vaccine is not up to date. - Social history:: Smoking status: Patient reports the use of cigarette tobacco products, smokes one-half pack cigarettes per day. Screenin:40 Abuse screen: Denies threats or abuse. Denies injuries from another. Nutritional tp1 screening: No deficits noted. Tuberculosis screening: No symptoms or risk factors identified. Fall Risk None identified. Assessment: 20:39 General: Appears in no apparent distress. comfortable, Behavior is calm, cooperative. tp1 Neuro: Level of Consciousness is awake, alert, obeys commands, Oriented to person, place, time, situation. Cardiovascular: Patient's skin is warm and dry. Respiratory: Airway is patent Respiratory effort is even, unlabored. Derm: Skin is pink, warm \\T\\ dry. Musculoskeletal: Circulation, motion, and sensation intact. Vital Signs: 20:25 BP 155 / 76; Pulse 85; Resp 18; Temp 98.6; Pulse Ox 100% on R/A; Weight 92.99 kg; tw5 Height 5 ft. 1 in. (154.94 cm); Pain 9/10; 20:25 Body Mass Index 38.73 (92.99 kg, 154.94 cm) tw5 ED Course: 20:12 Patient arrived in ED. ja2 20:15 [facility] pm1 20:15 Jeovanny Harris MD is Attending Physician. pm1 20:28 Triage completed. tw5 20:29 Arm band placed on. tw5 20:40 Patient has correct armband on for positive identification. Bed in low position. Call tp1 light in reach. 20:40 No provider procedures requiring assistance completed. Patient did not have IV access tp1 during this emergency room visit. Administered Medications: 20:39 Drug: morphine 4 mg Route: IM; Site: right gluteus; tp1 20:40 Follow up: Response: Medication administered at discharge. tp1 20:39 Drug: Zofran (Ondansetron) 4 mg Route: PO; tp1 20:40 Follow up: Response: Medication administered at discharge. tp1 Medication: 20:40 VIS not applicable for this client. tp1 Outcome: 20:24 Discharge ordered by . pm1 20:41 Discharged to home ambulatory, with family. tp1 20:41 Condition: good 20:41 Discharge instructions given to patient, Instructed on discharge instructions, follow up and referral plans. medication usage, Demonstrated understanding of instructions, follow-up care, medications, Prescriptions given X 1. 20:41 Patient left the ED. tp1 Signatures: Aries Robins NP [employer] pm1 Yu Portillo Tiffany tw5 Esha Lemus RN RN tp1
[2022-08-31 20:47] VITALS: BP 155/76; TEMP 98.6; O2SAT 100
== END 2022-08-31 20:41 | disposition home or self-care (01) ==
LOC: ER 20:09
DX: K08.89 Other specified disorders of teeth and supporting structures (principal); F17.210 Nicotine dependence, cigarettes, uncomplicated
CPT/HCPCS: 96372; 99283; Q0162

== ENCOUNTER 2022-09-01 20:35 | Emergency (ER) | payer BC ==
--- OUTSIDE RECORDS SUMMARY | 2022-09-01 20:38 | XMS REPORT | Continuity of Care Document ---
:1965 Author Organization [facility] t Address [address] [place] [address] Care Team Providers Name Role Phone TRE SCOTT Primary Care Physician Unavailable GORDON MILLS Attending Clinician Unavailable RADIOLOGY Attending Clinician Unavailable Gordon Mills MD Attending Clinician AG RIVERA Attending Clinician Unavailable Rolly Ling Attending Clinician Unavailable SHELLEY ROJAS Attending Clinician Unavailable GORDON MILLS Admitting Clinician Unavailable Payers Payer Name Policy Type Policy Number Effective Date Expiration Date S yemi [facility] - [id number] 2008 00:00:00 OUT OF STATE Problems Condition Condition Condition Status Onset Resolution Last Treating Co mments Source Name Details Category Date Date Treatment Clinician Date Heartburn Heartburn Disease Active 2019-10 Overview: Univers 1-17 Formattin ity of 00:00: g of this [place] 00 note Medical might be Branch different from the original. Added automatic ally from request for surgery [id number] Diverticul Diverticul Disease Active U nivers itis itis -15 ity of 00:00: [place] 00 Medical Branch Morbid Morbid Disease Active Univers obesity obesity 9-15 [place]y of with [place] mass index mass index 00 Me dical of of Branch 40.0-49.9 40.0-49.9 Allergies, Adverse Reactions, Alerts Allergy Allergy Status Severity Reaction(s) Onset Inactive Treating Comm ents Source Name Type Date Date Clinician No Known DA Active U 2017-10 [facility] [place] [facility] No Known DA Active U 2017-10 [facility] 105 [place] 00:[facility] No Known DA Active U 2017-10 [facility] 1- [place] 00:[facility] No Known DA Active U [facility] - [place] [facility] 00:[facility] NO KNOWN Drug Active Univers ALLERGIE Class ity of S [facility] Social History Social Habit Start Date Stop Date Quantity Comments Source History [facility] University o f Alcohol Std Drinks [place] [facility] History [facility] University o f Alcohol Binge [place] [facility] al Branch History [facility] University o f Alcohol Comment [place] Med ical Branch Exposure to Yes University of SARS-CoV-2 (event) [facility] Branch History of tobacco Cigarette Smoker University of use [facility] Branch Alcohol intake 2021-09-27 2021-09-27 Lifetime University of 00:00:00 00:00:00 non-drinker [place] Medical (finding) Branch History SDOH 2019-08-22 2019-08-22 1 University o f Alcohol Frequency 00:00:00 00:00:00 [facility] Branch Cigarettes smoked 2019-06-22 2019-06-22 Univers ity of current (pack per 00:00:00 00:00:00 [facility]) - Reported Branch Tobacco use and 2019-06-22 2019-06-22 Never used Universit y of exposure 00:00:00 00:00:00 [facility] Sex Ass[birth year] Universit y of 00:00:00 00:00:00 [facility] Smoking Status Start Date Stop Date Source Current every day smoker 2019-06-22 00:00:[address] [facility] Medications Ordered Filled Start Stop Current Ordering Indication Dosage Frequency Signature Comments Components Source Medication Medication Date Date Medication? Clinician (SIG) Name Name PANTOPRAZOL Yes [id number] TAKE 1 Univers E 20 mg EC 9-07 TABLET BY ity of tablet 00:00: MOUTH [place] 00 EVERY DAY Medical Branch PANTOPRAZOL Yes [id number] TAKE 1 Univers E 20 mg EC 9-07 TABLET BY ity of tablet 00:00: MOUTH [place] 00 EVERY DAY Medical Branch escitalopra 2019-10 Yes 10mg Take 10 mg Univers m oxalate 2-07 by mouth ity of 10 mg 00:00: every [place] tablet 00 morning. Medical Branch terbinafine 2019-10 Yes 250mg Take 250 U nivers HCL 250 mg 2-07 mg by ity of tablet 00:00: mouth [place] 00 daily. Medical Branch escitalopra 2019-10 Yes 10mg Take 10 mg Univers m oxalate 2-07 by mouth ity of 10 mg 00:00: every [place] tablet 00 morning. Medical Branch terbinafine 2019-10 Yes 250mg Take 250 U nivers HCL 250 mg 2-07 mg by ity of tablet 00:00: mouth [place] 00 daily. Medical Branch QUEtiapine Yes 6.25mg Take 6.25 Univers 25 mg 9-17 mg by ity of tablet 00:00: mouth [place] 00 daily. Medical Branch QUEtiapine Yes 6.25mg Take 6.25 Univers 25 mg 9-17 mg by ity of tablet 00:00: mouth [place] 00 daily. Medical Branch Vital Signs Vital Name Observation Time Observation Value Comments Source Systolic blood 2021-09-27 20:42:00 116 mm[Hg] Univer sity of pressure [facility] Diastolic blood 2021-09-27 20:42:00 68 mm[Hg] Unive rsity of [facility] Heart rate 2021-09-27 20:42:00 85 /min Universi ty [facility] Body temperature 2021-09-27 20:42:00 36.28 Sayra Univ ersity of [facility] Respiratory rate 2021-09-27 20:42:00 16 /min [facility] Body height 2021-09-27 20:42:00 154.9 cm [facility] Body weight 2021-09-27 20:42:00 99.61 kg [facility] BMI 2021-09-27 20:42:00 41.49 kg/m2 [facility] Oxygen saturation in 2021-09-27 20:42:00 96 /min [facility] Arterial blood by [facility] Pulse oximetry Branch Procedures Procedure Date / Time Performed Performing Clinician Sour e US ABDOMEN LIMITED 2021-10-17 19:17:30 Simon Ritchie [facility] CONSENT/REFUSAL FOR 2021-10-17 18:35:32 Doctor Unassigned, No [facility] DIAGNOSIS AND Name [facility] TREATMENT ASSIGNMENT OF BENEFITS 2021-10-17 18:35:18 Doctor Unassigned, No [facility] Encounters Start End Encounter Admission Attending Care Care Encounter Source Date/Time Date/Time Type Type Clinicians Facility Department ID 2021-08-06 Emergency [facility] [id number] [facility] 2021-[facility]-06 [id number] Univers 06:29:[address] [facility] 2022-09-29 2022-09-29 Outpatient R RADIOLOGY [facility] [id number] Univers 00:00[facility]00 [facility] 2021-10-17 2021-10-17 [facility] [id number] Univers 12:35:22 23:59:00 Encounter Gordon ACEVEDO [id number] ity [facility] [id number] [facility] [id number] [facility] 806 Branch 2021-10-17 2021-10-17 Outpatient R GENE [facility] [id number] Univers 12:35:22 23:59:[address] [facility] 2021-09-27 2021-09-27 Outpatient R GENE [facility] [id number] Univers 14:45:00 15:17:[address] [facility] 2021-09-27 2021-09-27 [facility] [id number] Univers 14:45:00 15:17:57 Visit Gordon ACEVEDO [id number] i ty of [facility] [id number] [place] [phone] Al dical NAL [address] [place] [address] 2021-06-03 2021-06-03 [facility] [id number] Univers 00:00:00 00:00:00 Gordon Acevedo [id number] i [place] [id number] [place] [phone] Al dic[address] 2021-04-28 2021-04-28 Outpatient R MIGUEL [facility] [id number] Univers 13:00:00 13:00:[address] [facility] 2021-03-22 2021-03-22 Outpatient R GENE [facility] [id number] Univers 15:30:00 15:30:[address] [facility] 2020-10-22 2020-10-22 Outpatient R RADIOLOGY [facility] [id number] Univers 00:00:00 00:00:[address] [facility] 2020-09-20 2020-09-20 Outpatient R GENE [facility] [id number] Univers 09:30:00 09:30:[address] [facility] 2020-09-13 2020-09-13 Outpatient R GENE [facility] [id number] Univers 10:30:00 10:30:[address] [facility] 2020-09-01 2020-09-01 Outpatient R GENE [facility] [id number] Univers 13:45:00 13:45:[address] [facility] 2020-05-31 2020-05-31 Outpatient R GENE [facility] [id number] Univers 09:30:00 09:30:[address] [facility] 2020-04-27 2020-04-27 Outpatient R BOB [facility] [id number] Univers 10:40:00 10:40:[address] [facility] Results Test Description Test Time Test Comments Results Result Sourc e Comments NM CT SPECT (EG, 2020-10-25 HEAD, NECK, CHEST, 16:02:11 PELVIS) [facility] [[id number]] [facility] MEDICAL IMAGINGName: CRUZ TDOD : 1965 Sex: F CL INICAL INDICATION: M51.36 Other intervertebral disc degeneration, lumbar humoheC44.16 Intervertebral disc disorders with radiculopathy, lumbar ulclbhV30.061 Spinal stenosis, lumbar region without neurogenic claudMODALITY: Discovery NM/CT 670TECHNIQUE: 25 mCi Tc 99m MDP are injected IV. After a suitable time delay, whole body imaging images were obtained. SPECT imaging of the lumbar spine is performed with computer and physician-assisted 2-D and 3-D reconstruction. Co-registered low dose limited diagnostic CT images are obtained at the level of SPECT imaging.Computed Tomography Dose Index: 5.44 mGy.FINDINGS:COMPARIS ON: Fusion CT exam.CT Comments: None.Symmetric bilateral renal function is observed.Mild to moderate arthritic uptake is noted bilateral shoulders, bilateral wrists, bilateral mid feet. Mild uptake is noted at the patellofemoral joints bilaterally.SPECT CT fusion imaging of the lumbar spine demonstrates no significant intervertebral disc uptake to be present. Moderate bilateral L4-5 facet uptake is most conspicuous.IMPRESSIO N:See comments above.PQRS 147: [id number]
[2022-09-01] MEDS ORDERED: KETOROLAC 30 MG/ML INJ ONE (21:24)
--- NOTE | 2022-09-01 21:24 | EDPHYS ---
Physician Documentation [facility] Name: Pilar Preston Age: 57 yrs Sex: Female : 1965 Arrival Date: 09/01/2022 Time: 20:40 Bed 11 Private MD: ED Physician Jeovanny Harris HPI: 09/01 21:05 This 57 yrs old Female presents to ER via Ambulatory with complaints of cp Toothache. 21:05 The patient presents with pain. The problem is located in the left upper jaw. cp 21:05 Onset: The symptoms/episode began/occurred 4 day(s) ago. cp 21:05 Associated signs and symptoms: Pertinent negatives: dysphagia, fever, inability to eat. cp Patient was seen yesterday in this ED for similar complaint. Currently taking penicillin antibiotic. Patient requesting shot of pain medication. Historical: - Allergies: 20:50 No Known Allergies; kr3 - Home Meds: 20:50 Seroquel Oral [Active]; kr3 - PMHx: 20:50 None; kr3 - PSHx: 20:50 Total abdominal hysterectomy; kr3 - Immunization history:: Adult Immunizations not up to date. - Social history:: Smoking status: Patient reports the use of cigarette tobacco products, smokes one-half pack cigarettes per day. ROS: 21:09 Constitutional: Negative for body aches, chills, fever, poor PO intake. cp 21:09 ENT: Positive for dental pain, left upper jaw pain, Negative for drainage from ear(s), ear pain, sore throat, difficulty swallowing, difficulty handling secretions. 21:09 Neck: Negative for pain with movement, pain at rest, stiffness. Exam: 21:13 Constitutional: The patient appears in no acute distress, alert, awake, cp non-diaphoretic, non-toxic, well developed, well nourished. 21:13 Head/face: Noted is tenderness, that is mild, of the left cheek. cp 21:13 Eyes: Periorbital structures: appear normal, Conjunctiva: normal, no exudate, no injection, Sclera: no appreciated abnormality, Lids and lashes: appear normal, bilaterally. 21:13 ENT: External ear(s): are unremarkable, Ear canal(s): are normal, clear, TM's: dullness, bilaterally, Nose: is normal, Mouth: Lips: moist, Oral mucosa: pink and intact, moist, Posterior pharynx: Airway: no evidence of obstruction, patent, swelling, is not appreciated, erythema, is not appreciated, exudate, is not appreciated, Dental exam: abscess, is not appreciated, dental caries, that is moderate, diffusely, gum swelling, not appreciated, missing teeth, diffusely, pain, that is mild, specifically in the upper left first bicuspid (#12), upper left second bicuspid (#13), upper left first molar (#14) and upper left second molar (#15), Voice: is normal. 21:13 Neck: ROM/movement: is normal, is supple, without pain, no range of motions limitations, Lymph nodes: no appreciated lymphadenopathy. 21:13 Chest/axilla: Inspection: normal. 21:13 Cardiovascular: Rate: normal, Rhythm: regular. 21:13 Respiratory: the patient does not display signs of respiratory distress, Respirations: normal, no use of accessory muscles, no retractions, Breath sounds: are clear throughout, no decreased breath sounds. 21:13 Abdomen/GI: Exam negative for discomfort, distension, guarding, Inspection: abdomen appears normal. 21:13 Skin: no rash present. 21:13 Neuro: Orientation: to person, place \T\ time. Mentation: is normal. Vital Signs: 20:43 BP 150 / 78; Pulse 78; Resp 18; Temp 97.5(TE); Pulse Ox 100% ; Weight 94.8 kg; Height 5 kr3 ft. 1 in. (154.94 cm); Pain 9/10; 20:43 Body Mass Index 39.49 (94.80 kg, 154.94 cm) kr3 MDM: 20:52 Patient medically screened. cp 21:23 Data reviewed: vital signs, nurses notes. cp 21:23 Differential diagnosis: dental caries, dental abscess, pericoronitis. Counseling: I had cp a detailed discussion with the patient and/or guardian regarding: the historical points, exam findings, and any diagnostic results supporting the discharge/admit diagnosis. ED course: Patient refusing any labs to be drawn and/or imaging studies at this time. Administered Medications: 21:22 CANCELLED (Patient Refused): morphine 4 mg IVP once over 4 mins tw5 21:28 Drug: Ketorolac 60 mg Route: IM; Site: right ventrogluteal; 21:30 Follow up: Response: No adverse reaction; Medication administered at discharge. Disposition: 22:00 Co-signature as Attending Physician, Jeovanny Harris MD. rn Disposition Summary: 09/01/22 21:24 Discharge Ordered Location: Home cp Problem: an ongoing problem cp Symptoms: are unchanged cp Condition: Stable cp Diagnosis - Disorder of teeth and supporting structures, unspecified cp Followup: cp - With: Esteban Bañuelos DDS - When: 2 - 3 days - Reason: Recheck today's complaints Discharge Instructions: - Discharge Summary Sheet cp - Dental Pain cp Forms: - Medication Reconciliation Form cp - Thank You Letter cp - Antibiotic Education cp - Prescription Opioid Use cp Signatures: Dispatcher [employer] EDMS Jeovanny Harris MD MD rn Moises Solis PA PA cp Wood, Tiffany Meghna Wiseman RN RN kr3 Corrections: (The following items were deleted from the chart) : 21:09 IV Saline Lock ordered. cp : 21:09 morphine 4 mg IVP once over 4 mins ordered. cp : 21:09 CBC+H.LAB.BRZ ordered. EDMS EDMS : 21:09 BASIC METABOLIC PANEL+C.LAB.BRZ ordered. EDMS EDMS 21: 21:09 Facial Bones W/ Con \T\ MPR+CT.RAD.BRZ ordered. EDMS EDMS
--- NOTE | 2022-09-01 21:24 | ER ---
Nurse's Notes [facility] Name: Pilar Preston Age: 57 yrs Sex: Female : 1965 Arrival Date: 09/01/2022 Time: 20:40 Bed 11 Private MD: Diagnosis: Disorder of teeth and supporting structures, unspecified Presentation: 09/01 20:43 Chief complaint: Patient states: toothache that started 6-7 weeks age and was seen by kr3 dentist, was seen in the ED yesterday, given prescription yesterday and does not seem to help. Returned hoping to get the same pain medication that helped yesterday. Coronavirus screen: Vaccine status: Patient reports being unvaccinated. Client denies travel out of the [place] in the last 14 days. Ebola Screen: Patient denies travel to an Ebola-affected area in the 21 days before illness onset. Initial Sepsis Screen: Does the patient meet any 2 criteria? No. Patient's initial sepsis screen is negative. Does the patient have a suspected source of infection? No. Patient's initial sepsis screen is negative. Risk Assessment: Do you want to hurt yourself or someone else? Patient reports no desire to harm self or others. Onset of symptoms was July 22, 2022. 20:43 Method Of Arrival: Ambulatory kr3 20:43 Acuity: FRANKLIN 4 kr3 Triage Assessment: 20:50 General: Appears in no apparent distress. uncomfortable, Behavior is calm, cooperative, kr3 appropriate for age. Pain: Complains of pain in toothache. 21:29 EENT: Reports pain in left jaw. tw5 Historical: - Allergies: 20:50 No Known Allergies; kr3 - Home Meds: 20:50 Seroquel Oral [Active]; kr3 - PMHx: 20:50 None; kr3 - PSHx: 20:50 Total abdominal hysterectomy; kr3 - Immunization history:: Adult Immunizations not up to date. - Social history:: Smoking status: Patient reports the use of cigarette tobacco products, smokes one-half pack cigarettes per day. Screenin:29 Abuse screen: Denies threats or abuse. Denies injuries from another. Nutritional tw5 screening: No deficits noted. Tuberculosis screening: No symptoms or risk factors identified. Fall Risk None identified. Assessment: 21:29 General: Appears in no apparent distress. uncomfortable, Behavior is calm. Neuro: No tw5 deficits noted. Cardiovascular: No deficits noted. Respiratory: No deficits noted. GI: No deficits noted. Vital Signs: 20:43 BP 150 / 78; Pulse 78; Resp 18; Temp 97.5(TE); Pulse Ox 100% ; Weight 94.8 kg; Height 5 kr3 ft. 1 in. (154.94 cm); Pain 9/10; 20:43 Body Mass Index 39.49 (94.80 kg, 154.94 cm) kr3 ED Course: 20:40 Patient arrived in ED. bp1 20:43 Moises Solis PA is PHCP. cp 20:43 Jeovanny Harris MD is Attending Physician. cp 20:50 Triage completed. kr3 20:51 Arm band placed on right wrist. Patient placed in an exam room, on a stretcher. kr3 21:22 Esha Mendoza is Primary Nurse. tw5 21:23 Esteban Bañuelos DDS is Referral Physician. cp 21:29 Patient has correct armband on for positive identification. tw5 21:29 No provider procedures requiring assistance completed. Patient did not have IV access tw5 during this emergency room visit. Administered Medications: 21:22 CANCELLED (Patient Refused): morphine 4 mg IVP once over 4 mins tw5 21:28 Drug: Ketorolac 60 mg Route: IM; Site: right ventrogluteal; tw5 21:30 Follow up: Response: No adverse reaction; Medication administered at discharge. tw5 Medication: 21:29 VIS not applicable for this client. tw5 Outcome: 21:24 Discharge ordered by . cp 21:29 Discharged to home ambulatory. tw5 21:29 Condition: good 21:29 Discharge instructions given to patient, Instructed on discharge instructions, follow up and referral plans. Demonstrated understanding of instructions, follow-up care. 21:41 Patient left the ED. tw5 Signatures: Moises Solis PA PA cp [place], Brittany bp1 Esha Mendoza tw5 Meghna Wiseman, RN RN kr3
[2022-09-01 21:45] VITALS: BP 150/78; TEMP 97.5; O2SAT 100
== END 2022-09-01 21:41 | disposition home or self-care (01) ==
LOC: ER 20:35
DX: K08.89 Other specified disorders of teeth and supporting structures (principal); F17.210 Nicotine dependence, cigarettes, uncomplicated
CPT/HCPCS: 96372; 99283

== ENCOUNTER 2022-09-23 21:08 | Emergency (ER) | payer BC ==
--- OUTSIDE RECORDS SUMMARY | 2022-09-23 21:11 | XMS REPORT | Continuity of Care Document ---
:1965 Author Organization [facility] t Address [address] [place] [address] Care Team Providers Name Role Phone TRE SCOTT Primary Care Physician Unavailable GORDON MILLS Attending Clinician Unavailable RADIOLOGY Attending Clinician Unavailable Gordon Mills MD Attending Clinician AG RIVERA Attending Clinician Unavailable SHELLEY ROJAS Attending Clinician Unavailable GORDON MILLS Admitting Clinician Unavailable Payers Payer Name Policy Type Policy Number Effective Date Expiration Date S yemi [facility] - [id number] 2008 00:00:00 OUT OF STATE Problems Condition Condition Condition Status Onset Resolution Last Treating Co mments Source Name Details Category Date Date Treatment Clinician Date Heartburn Heartburn Disease Active 2019-10 Overview: Univers -17 Formattin ity of 00:00: g of this [place] 00 note Medical might be Branch different from the original. Added automatic ally from request for surgery [id number] Diverticul Diverticul Disease Active U nivers itis [...] DA Active U 2017-10 [facility] [place] [facility] 00:[facility]: [facility] No Known DA Active U 2017-10 [facility] 10-12 [facility] 00:00: Orthope 00 dic Hospita [facility] No Known DA Active U 2017-10 [facility] 10-09 [place] [facility] 00:[facility]: Orthope 00 dic [facility] No Known DA Active U [facility] 04-12 [facility] 00:00: Orthope 00 dic Hospita l NO KNOWN Drug Active Univers ALLERGIE Class ity of S [facility] Social History Social Habit Start Date Stop Date Quantity Comments Source History [facility] University o f Alcohol Std Drinks [place] [facility] History [facility] o f Alcohol Binge [place] [facility] al Branch History [facility] o f Alcohol Comment [place] Med ical Branch Exposure to Yes University of SARS-CoV-2 (event) [facility] Branch History of tobacco Cigarette Smoker University of use [facility] Branch Alcohol intake 2021-09-27 2021-09-27 Lifetime University of 00:00:00 00:00:00 non-drinker [place] [facility] (finding) Branch History SDOH 2019-08-22 2019-08-22 1 University o f Alcohol [facility]:00[facility]00 [facility]00[facility] Cigarettes smoked 2019-06-22 2019-06-22 Univers ity of current (pack per 00:00:00 00:00:00 [facility]) - Reported Branch Tobacco use and 2019-06-22 2019-06-22 Never used Universit y of exposure 00:00:00 00:00:00 [facility] Sex Ass[birth year] At [birth year] Universit y of 00:00:00 00:00:00 [facility] Smoking Status Start Date Stop Date Source Current every day smoker 2019-06-22 00:00:00 [facility]ations Ordered Filled Start Stop Current Ordering Indication Dosage Frequency Signature Comments Components Source Medication Medication Date Date Medication? Clinician (SIG) Name Name PANTOPRAZOL Yes [id number] TAKE 1 Univers E 20 mg EC 9-07 TABLET BY ity of tablet 00:00: MOUTH [place] 00 EVERY DAY Medical Branch PANTOPRAZOL Yes [id number] TAKE 1 Univers E 20 mg EC [...] mg by ity of tablet 00:00: mouth [place] 00 daily. Medical Branch escitalopra 2019-10 Yes 10mg Take 10 mg Univers m oxalate 2-07 by mouth ity of 10 mg 00:00: every [place] tablet 00 morning. Medical Branch terbinafine 2019-10 Yes 250mg Take 250 U nivers HCL 250 mg 2-07 mg by ity of tablet 00:00: mouth [place] 00 daily. Medical Branch QUEtiapine Yes 6.25mg Take 6.25 Univers 25 mg 9-17 mg by ity of tablet 00:00: mouth [place] 00 daily. Medical Branch QUEtiapine Yes 6.25mg Take 6.25 Univers 25 mg 9-17 mg by ity of tablet 00:00: mouth [place] 00 daily. Medical Branch Vital Signs Vital Name Observation Time Observation Value Comments Source Systolic blood 2021-09-27 20:42:00 116 mm[Hg] Univer sity of pressure [facility] Diastolic blood 2021-09-27 20:42:00 68 mm[Hg] [facility] 2021-09-27 20:42:00 85 /[facility] Body temperature 2021-09-27 20:42:00 36.28 [facility] [place] [facility] Respiratory rate 2021-09-27 20:42:00 16 /min [facility] Body height 2021-09-27 20:42:00 154.9 cm [facility] Body weight 2021-09-27 20:42:00 99.61 kg [facility] BMI 2021-09-27 20:42:00 41.49 kg/m2 [facility] Oxygen saturation in 2021-09-27 20:42:00 96 /min [facility] Arterial blood by [facility] Pulse oximetry Branch Procedures Procedure Date / Time Performed Performing Clinician Sour e US ABDOMEN LIMITED 2021-10-17 19:17:30 Simon Ritchie [facility] CONSENT/REFUSAL FOR 2021-10-17 18:35:32 Doctor Unassigned, No [facility] DIAGNOSIS AND Name [facility] TREATMENT ASSIGNMENT OF BENEFITS 2021-10-17 18:35:18 Doctor Unassigned, No General acute hospital Encounters Start End Encounter Admission Attending Care Care Encounter Source Date/Time Date/Time Type Type Clinicians Facility Department ID 2021-08-06 Emergency [facility] [id number] [facility]:29[facility] 2021-08-06 Outpatient R GINO [facility] LAZARO [id number] Univers 06:29:11 GORDON juan [facility] 2022-09-29 2022-09-29 Outpatient R RADIOLOGY [facility] [id number] Univers 00:00:00 [facility]00[facility] 2021-10-17 2021-10-17 Outpatient R GINO [facility] [id number] Univers 12:35:22 23:59:00 GORDON juan [facility] 2021-10-17 2021-10-17 [facility] [id number] Univers 12:35:22 23:59:00 [facility]counter [id number] [id number] [facility] 806 Branch 2021-09-27 2021-09-27 Outpatient R GINO [facility] [id number] Univers 14:45:00 15:17:57 [facility] 2021-09-27 2021-09-[address] [facility] [id number] Univers 14:45:00 15:17:57 Visit Gordon ACEVEDO [id number] i [id number] [id number] Fl dical [address] 2021-06-03 2021-06-[address] [facility] [id number] Univers 00:00:00 00:00:00 Gordon Acevedo [id number] [id number] [id number] Fl dic[address] 2021-04-28 2021-04-28 Outpatient R MIGUEL [facility] [id number] Univers 13:00:00 13:00:00 [facility] 2021-03-22 2021-03-22 Outpatient R GINO [facility] [id number] Univers 15:30:00 15:30:00 GORDON [facility] [place] [facility] 2020-10-22 2020-10-22 Outpatient R RADIOLOGY [facility] [id number] Univers 00:00:00 00:00:00 [facility] [place] [facility] 2020-09-20 2020-09-20 Outpatient R GINO [facility] [id number] Univers 09:30:00 09:30:00 GODRON karissa [facility] 2020-09-13 2020-09-13 Outpatient R GINO [facility] [id number] Univers 10:30:00 10:30:00 GORDON karissa [facility] 2020-09-01 2020-09-01 Outpatient R GINO [facility] [id number] Univers 13:45:00 13:45:00 GORDON karissa [facility] 2020-05-31 2020-05-31 Outpatient R GINO [facility] [id number] Univers 09:30:00 09:30:00 GORDON [facility] [place] [facility] 2020-04-27 2020-04-27 Outpatient R BOB [facility] [id number] Univers 10:40:00 10:40:00 SHELLEY juan [facility] Results This patient has no known results.
[2022-09-23 21:31] LABS: Urine Blood 3+ (Negative); Urine Glucose Trace (Negative); Urine Protein 2+ (Negative); Urine Specific Gravity 1.025 (1.005-1.030)
[2022-09-23] MEDS ORDERED: MORPHINE 4 MG/ML SYR ONE (21:44)
[2022-09-23] MEDS ORDERED: NA CHLORIDE 0.9% 1,000 ML ONE (21:45)
[2022-09-23] MEDS ORDERED: CEFTRIAXONE 1000 MG/VIAL ONE (21:45)
[2022-09-23] MEDS ORDERED: ONDANSETRON 4 MG/2 ML VIAL ONE (21:45)
[2022-09-23 21:48] LABS: Urine Bacteria None Seen /HPF (<20); Urine RBC >50 /HPF (None Seen); Urine WBC Clump Rare /HPF (None Seen)
[2022-09-23 22:13] LABS: Absolute Lymphocytes (CBC) 3.3 K/uL (0.7-4.9); Hematocrit 38.6 % (36.0-45.0); Lymphocytes % 29.5 % (15.3-44.8); MCV 86.6 fL (80-100); MPV 6.9 fL (7.6-11.3); RBC Red Blood Cell Count 4.46 M/uL (3.86-4.86)
[2022-09-23 22:24] LABS: Albumin 3.2 g/dL (3.4-5.0); Bilirubin Total 0.3 mg/dL (0.2-1.0); Potassium 3.9 mmol/L (3.5-5.1); Protein, Total 7.4 g/dL (6.4-8.2)
[2022-09-23] MEDS ORDERED: Levofloxacin 750mg IV 750 MG/150 ML BAG IV ONE (23:11)
[2022-09-23] MEDS ORDERED: PHENAZOPYRIDINE 100MG TAB PO ONE (23:11)
--- NOTE | 2022-09-23 23:25 | ER ---
Nurse's Notes [facility] Name: Pilar Preston Age: 57 yrs Sex: Female : 1965 Arrival Date: 09/23/2022 Time: 21:11 Bed 6 Private MD: Diagnosis: Dysuria;UTI/ Urinary tract infection, site not specified;Hematuria, unspecified;Cystitis, unspecified with hematuria;Diverticulosis of intestine, part unspecified, without perforation or abscess without bleeding;Other cholelithiasis without obstruction Presentation: 09/23 21:16 Chief complaint: Blood in urine and pain with urination x 2 hours. Coronavirus screen: hb At this time, the client does not indicate any symptoms associated with coronavirus-19. Ebola Screen: No symptoms or risks identified at this time. Risk Assessment: Do you want to hurt yourself or someone else? Patient reports no desire to harm self or others. Onset of symptoms was September 23, 2022. 21:16 Method Of Arrival: Ambulatory hb 21:16 Acuity: FRANKLIN 3 hb 23:42 Initial Sepsis Screen: Does the patient meet any 2 criteria? No. Patient's initial aa9 sepsis screen is negative. Does the patient have a suspected source of infection? No. Patient's initial sepsis screen is negative. Historical: - Allergies: 21:17 No Known Allergies; hb - Home Meds: 21:17 Seroquel Oral [Active]; hb - PSHx: 21:17 Total abdominal hysterectomy; hb - Immunization history:: Adult Immunizations up to date. - Social history:: Smoking status: Patient denies any tobacco usage or history of. - Family history:: not pertinent. Screenin:41 [facility] ED Fall Risk Assessment (Adult) History of falling in the last 3 months, aa9 including since admission No falls in past 3 months (0 pts). Humpty Dumpty Scale Fall Assessment Tool (age< 18yrs) Age 13 years and above (1 pt) Gender Female (1 pt) Diagnosis Other diagnosis (1 pt) Cognitive Impairments Oriented to own ability (1 pt). Abuse screen: Denies threats or abuse. Denies injuries from another. Nutritional screening: No deficits noted. Tuberculosis screening: No symptoms or risk factors identified. Fall Risk No fall in past 12 months (0 pts). Assessment: 23:30 Reassessment: Patient appears in no apparent distress at this time. discharge pending aa9 Levofloxican infusion completion. 23:39 General: Appears uncomfortable, obese, Behavior is calm, cooperative, appropriate for aa9 age. Pain: Complains of pain in suprapubic area, right lower quadrant and left lower quadrant. Neuro: Level of Consciousness is awake, alert, obeys commands, Oriented to person, place, time, situation. Respiratory: Airway is patent Respiratory effort is even, unlabored. Vital Signs: 21:16 BP 163 / 57; Pulse 83; Resp 16; Temp 98.4; Pulse Ox 97% on R/A; Weight 94.35 kg; Height hb 5 ft. 1 in. (154.94 cm); Pain 9/10; 23:40 BP 120 / 67; Pulse 64; Resp 19 S; Pulse Ox 100% on R/A; aa9 21:16 Body Mass Index 39.30 (94.35 kg, 154.94 cm) hb ED Course: 21:11 Patient arrived in ED. [id number] 21:17 Triage completed. hb 21:17 Arm band placed on. hb 21:21 Moises Mireles MD is Attending Physician. delbert 22:01 Inserted saline lock: 20 gauge in left antecubital area, using aseptic technique. Blood oe collected. 23:18 CT Abd/Pelvis - IV Contrast Only In Process Unspecified. EDMS 23:41 Patient has correct armband on for positive identification. Bed in low position. Call aa9 light in reach. Side rails up X2. Adult w/ patient. Door closed. Warm blanket given. 23:41 No provider procedures requiring assistance completed. aa9 09/24 00:51 IV discontinued, intact, bleeding controlled, No redness/swelling at site. Pressure aa9 dressing applied. Administered Medications: 09/23 22:08 Drug: NS 0.9% 1000 ml Route: IV; Rate: 1 bolus; Site: left antecubital; aa9 :08 Drug: Zofran (Ondansetron) 4 mg Route: IVP; Site: left antecubital; aa9 22:08 Drug: morphine 4 mg Route: IVP; Infused Over: 4 mins; Site: left antecubital; aa9 22:08 Drug: Rocephin (cefTRIAXone) 1 grams Route: IV; Rate: per protocol; Site: left aa9 antecubital; 23:17 Drug: levofloxacin 750 mg Volume: 150 ml; Route: IVPB; Infused Over: 90 mins; Site: aa9 left antecubital; 09/24 00:50 Follow up: Response: No adverse reaction; IV Status: Completed infusion; IV Intake: aa9 150ml 09/23 23:17 Drug: Pyridium (phenazopyridine) 200 mg Route: PO; aa9 09/24 00:37 Follow up: Response: No adverse reaction aa9 Medication: 09/23 23:41 VIS not applicable for this client. aa9 Intake: 09/24 00:50 IV: 150ml; Total: 150ml. aa9 Outcome: 09/23 23:24 Discharge ordered by MD. mandujano 09/24 00:51 Discharged to home ambulatory, with family. aa9 Condition: stable Discharge instructions given to patient, family, Instructed on discharge instructions, follow up and referral plans. medication usage, Demonstrated understanding of instructions, follow-up care, medications, Prescriptions given X 3. 00:51 Patient left the ED. aa9 Addendum: 09/26/2022 10:40 Addendum: Culture Results: Positive urine culture. No further action required. Bacteria i w sensitive to prescribed antibiotic. Signatures: Dispatcher [employer] EDMS Moises Mireles MD MD cha Williams, Irene, RN Saira Quintana RN RN hb Espinosa, Orlando oe Jeffries, Jennifer jj6 Yolis Brown RN RN aa9
--- NOTE | 2022-09-23 23:25 | EDPHYS ---
Physician Documentation [facility] Name: Pilar Preston Age: 57 yrs Sex: Female : 1965 Arrival Date: 09/23/2022 Time: 21:11 Bed 6 Private MD: ED Physician Moises Mireles HPI: 09/23 22:49 This 57 yrs old Female presents to ER via Ambulatory with complaints of delbert Urinary Incontinence, Hematuria. 22:49 The patient presents with urinary symptoms, frequency, hematuria, hesitancy, delbert incontinence, urgency. Onset: The symptoms/episode began/occurred just prior to arrival, today. Modifying factors: The symptoms are alleviated by nothing, the symptoms are aggravated by nothing. Associated signs and symptoms: The patient has no apparent associated signs or symptoms. Severity of symptoms: At their worst the symptoms were mild, moderate, in the emergency department the symptoms are unchanged. The patient is sexually active, reports multiple partners. The patient has not experienced similar symptoms in the past. Historical: - Allergies: 21:17 No Known Allergies; hb - Home Meds: 21:17 Seroquel Oral [Active]; hb - PSHx: 21:17 Total abdominal hysterectomy; hb - Immunization history:: Adult Immunizations up to date. - Social history:: Smoking status: Patient denies any tobacco usage or history of. - Family history:: not pertinent. ROS: 22:49 Constitutional: Negative for fever, chills, and weight loss, Eyes: Negative for injury, delbert pain, redness, and discharge, ENT: Negative for injury, pain, and discharge, Neck: Negative for injury, pain, and swelling, Cardiovascular: Negative for chest pain, palpitations, and edema, Respiratory: Negative for shortness of breath, cough, wheezing, and pleuritic chest pain, Back: Negative for injury and pain, : Negative for injury, bleeding, discharge, and swelling, MS/Extremity: Negative for injury and deformity, Skin: Negative for injury, rash, and discoloration, Neuro: Negative for headache, weakness, numbness, tingling, and seizure, Psych: Negative for depression, anxiety, suicide ideation, homicidal ideation, and hallucinations, Allergy/Immunology: Negative for hives, rash, and allergies, Endocrine: Negative for neck swelling, polydipsia, polyuria, polyphagia, and marked weight changes, Hematologic/Lymphatic: Negative for swollen nodes, abnormal bleeding, and unusual bruising. 22:49 Abdomen/GI: Positive for abdominal pain, abdominal cramps, of the suprapubic area. Exam: 22:49 Constitutional: This is a well developed, well nourished patient who is awake, alert, delbert and in no acute distress. Head/Face: Normocephalic, atraumatic. Eyes: Pupils equal round and reactive to light, extra-ocular motions intact. Lids and lashes normal. Conjunctiva and sclera are non-icteric and not injected. Cornea within normal limits. Periorbital areas with no swelling, redness, or edema. ENT: Nares patent. No nasal discharge, no septal abnormalities noted. Tympanic membranes are normal and external auditory canals are clear. Oropharynx with no redness, swelling, or masses, exudates, or evidence of obstruction, uvula midline. Mucous membranes moist. Neck: Trachea midline, no thyromegaly or masses palpated, and no cervical lymphadenopathy. Supple, full range of motion without nuchal rigidity, or vertebral point tenderness. No Meningismus. Chest/axilla: Normal chest wall appearance and motion. Nontender with no deformity. No lesions are appreciated. Cardiovascular: Regular rate and rhythm with a normal S1 and S2. No gallops, murmurs, or rubs. Normal PMI, no JVD. No pulse deficits. Respiratory: Lungs have equal breath sounds bilaterally, clear to auscultation and percussion. No rales, rhonchi or wheezes noted. No increased work of breathing, no retractions or nasal flaring. Back: No spinal tenderness. No costovertebral tenderness. Full range of motion. Female : Normal external genitalia. Skin: Warm, dry with normal turgor. Normal color with no rashes, no lesions, and no evidence of cellulitis. 22:49 Abdomen/GI: Inspection: abdomen appears normal, Bowel sounds: normal, Palpation: mild abdominal tenderness, moderate abdominal tenderness, in the suprapubic area, Liver: no appreciated palpable abnormalities, Hernia: not appreciated. 22:49 : CVA tenderness, is absent, Pelvic Exam: is not necessary for this patient, Bladder: tenderness, that is mild, that is moderate. Vital Signs: 21:16 BP 163 / 57; Pulse 83; Resp 16; Temp 98.4; Pulse Ox 97% on R/A; Weight 94.35 kg; Height hb 5 ft. 1 in. (154.94 cm); Pain 9/10; 23:40 BP 120 / 67; Pulse 64; Resp 19 S; Pulse Ox 100% on R/A; aa9 21:16 Body Mass Index 39.30 (94.35 kg, 154.94 cm) hb MDM: 21:23 Patient medically screened. [facility] 22:52 Differential diagnosis: kidney stone, ovarian cyst, urinary tract infection. Data [facility] reviewed: vital signs, nurses notes, lab test result(s), radiologic studies, CT scan. Data interpreted: security dispatcher: rate is 83 beats/min, rhythm is regular, Pulse oximetry: on room air is 97 %. Counseling: I had a detailed discussion with the patient and/or guardian regarding: the historical points, exam findings, and any diagnostic results supporting the discharge/admit diagnosis, lab results, radiology results, the need for outpatient follow up, for definitive care, a family practitioner. 09/23 21:26 Order name: CBC with Diff; Complete Time: 22:30 [facility] 09/23 21:26 Order name: CMP; Complete Time: 22:30 [facility] 09/23 21:26 Order name: Lipase; Complete Time: 22:30 [facility] 09/23 21:26 Order name: Urine Microscopic Only; Complete Time: 22:30 [facility] 09/23 21:31 Order name: Urine Dipstick-Ancillary; Complete Time: 22:30 [facility] 09/23 21:53 Order name: Urine Culture [facility] 09/23 21:26 Order name: CT Abd/Pelvis - IV Contrast Only [facility] 09/23 21:26 Order name: IV Saline Lock; Complete Time: 22:02 [facility] 09/23 21:26 Order name: Labs collected and sent; Complete Time: 22:02 [facility] 09/23 21:26 Order name: Urine Dipstick-Ancillary (obtain specimen); Complete Time: 21:55 [facility] Administered Medications: 22:08 Drug: NS 0.9% 1000 ml Route: IV; Rate: 1 bolus; Site: left antecubital; aa9 22:08 Drug: Zofran (Ondansetron) 4 mg Route: IVP; Site: left antecubital; aa9 22:08 Drug: morphine 4 mg Route: IVP; Infused Over: 4 mins; Site: left antecubital; aa9 22:08 Drug: Rocephin (cefTRIAXone) 1 grams Route: IV; Rate: per protocol; Site: left aa9 antecubital; 23:17 Drug: levofloxacin 750 mg Volume: 150 ml; Route: IVPB; Infused Over: 90 mins; Site: aa9 left antecubital; 09/24 00:50 Follow up: Response: No adverse reaction; IV Status: Completed infusion; IV Intake: aa9 150ml 09/23 23:17 Drug: Pyridium (phenazopyridine) 200 mg Route: PO; aa9 09/24 00:37 Follow up: Response: No adverse reaction aa9 Disposition Summary: 09/23/22 23:24 Discharge Ordered Location: Home delbert Problem: new delbert Symptoms: have improved delbert Condition: Stable delbert Diagnosis - Dysuria delbert - UTI/ Urinary tract infection, site not specified delbert - Hematuria, unspecified delbert - Cystitis, unspecified with hematuria delbert - Diverticulosis of intestine, part unspecified, without perforation or abscess delbert without bleeding - Other cholelithiasis without obstruction delbert Followup: delbert - With: Private Physician - When: 2 - 3 days - Reason: Recheck today's complaints, Continuance of care, Re-evaluation by your physician Discharge Instructions: - Discharge Summary Sheet delbert - Diverticulosis delbert - Dysuria delbert - Hematuria, Adult delbert - Urinary Tract Infection, Adult delbert - Cholelithiasis, [id number] delbert - Urinary Tract Infection, Adult, [id number] delbert - Antibiotic Medicine, Adult delbert Forms: - Medication Reconciliation Form [facility] - Thank You Letter [facility] - Antibiotic Education [facility] - Prescription Opioid Use [facility] Prescriptions: - Pyridium 200 mg Oral Tablet - take 1 tablet by ORAL route every 8 hours for 3 days; 9 tablet; Refills: 0, [facility] Product Selection Permitted - levofloxacin 500 mg Oral Tablet - take 1 tablet by ORAL route once daily for 7 days; 7 tablet; Refills: 0, [facility] Product Selection Permitted - Bactrim DS 800-160 mg Oral Tablet - take 1 tablet by ORAL route every 12 hours for 3 days; 6 tablet; Refills: 0, [facility] Product Selection Permitted Signatures: Dispatcher [employer] Moises Rosales MD MD cha Baxter, Heather, RN RN Yolis Brown RN RN aa9
[2022-09-24 01:25] VITALS: TEMP 98.4
[2022-09-24 01:35] VITALS: BP 120/67; O2SAT 100
--- NOTE | 2022-09-25 09:36 | RAD REPORT ---
EXAM DESCRIPTION: CT - Abdomen Pelvis W Contrast - 09/24/2022 6:06 am CLINICAL HISTORY: Flank pain, kidney stone suspected COMPARISON: None Available. TECHNIQUE: CT of the abdomen and pelvis performed following IV administration of iodinated contras t. This exam was performed according to our departmental dose-optimization program, which includes au tomated exposure control, adjustment of the mA and/or kV according to patient size and/or use of iter ative reconstruction technique. FINDINGS: Lung Bases: Minimal dependent atelectasis. Bones: Mild endplate spondylosis and facet arthropathy. Abdomen: Liver: Hepatomegaly. Gallbladder: Calcified gallstone. Spleen, Pancreas, and Adrenal Glands: The spleen, pancreas, and adrenal glands are unremarkable. Kidneys: No hydronephrosis or obstructing calculus. Vasculature: Aortoiliac atherosclerosis. IVC is unremarkable. The portal vein is patent. The proxim al visceral and renal arteries are patent. Stomach: Small hiatal hernia. Other: No free intraperitoneal air. No free fluid or lymphadenopathy. Pelvis: Bladder: Wall thickening of the urinary bladder. Bowel: No dilated loops of large or small bowel. Scattered diverticula colon. Appendix: Normal appendix. Pelvis: Prior hysterectomy. IMPRESSION: 1. Wall thickening of the urinary bladder. This could be seen with cystitis. 2. Hepatomegaly. 3. Cholelithiasis. 4. Diverticulosis without evidence of acute diverticulitis. Electronically signed by: Alan Cameron 09/23/2022 11:47 PM INSPECTOR OPEN DIE Due to temporary technical issues with the PACS/Fluency reporting system, reports are being signed by the in house radiologists without review as a courtesy to insure prompt reporting. The interpreting radiologist is fully responsible for the content of the report.
== END 2022-09-24 00:51 | disposition home or self-care (01) ==
LOC: ER 21:08
DX: N30.91 Cystitis, unspecified with hematuria (principal); K80.80 Other cholelithiasis without obstruction; K57.30 Diverticulosis of large intestine without perforation or abscess without bleeding; R16.0 Hepatomegaly, not elsewhere classified
CPT/HCPCS: 96365; 87088; 85025; 87086; 36415; 83690; 80053; 74177; 96375; 99284; 96366; Q9967; J7030; J2405; 81003; 81015; 87077; 87186

== ENCOUNTER 2023-04-20 06:20 | Emergency (ER) | payer BC ==
--- OUTSIDE RECORDS SUMMARY | 2023-04-20 06:22 | XMS REPORT | Continuity of Care Document ---
:1965 Author Organization [facility] t Address [address] [place] [address] [place] [id number] Care Team Providers Name Role Phone TRE SCOTT Primary Care Physician Unavailable GORDON MILLS Attending Clinician Unavailable RADIOLOGY Attending Clinician Unavailable Radiology Attending Clinician Unavailable Doctor Unassigned, Blue Attending Clinician Unavailable Gordon Mills MD Attending Clinician AG RIVERA Attending Clinician Unavailable SHELLEY ROJAS Attending Clinician Unavailable GORDON MILLS Admitting Clinician Unavailable TRE SCOTT Admitting Clinician Unavailable Payers Payer Name Policy Type Policy Number Effective Date Expiration Date S yemi [facility] - [id number] 2008 00:00:00 OUT OF STATE Problems Condition Condition Condition Status Onset Resolution Last Treating Co mments Source Name Details Category Date Date Treatment Clinician Date Heartburn Heartburn Disease Active 2019-10 Overview: Univers 1-17 Formattin ity of 00:00: g of this [place] 00 note Medical might be Branch different from the original. Added automatic ally from request for surgery [id number] Diverticul Diverticul Disease Active U nivers itis itis 9-15 ity of 00:00: [place] 00 Medical Branch [...] DA Active U 2017-10 [facility] [place] [facility] No Known DA Active U 2017-10 [facility] 1[facility]05 [place] 00:[facility] [facility] No Known DA Active U 2017-10 [facility] 1[facility]02 [place] 00:[facility] No Known DA Active U [facility] 7-06 [place] 00:[facility] [facility] NO KNOWN Drug Active Univers ALLERGIE Class ity of S [facility] Social History Social Habit Start Date Stop Date Quantity Comments Source History [facility] o f Alcohol Std Drinks [place] [facility] History [facility] o f Alcohol Binge [place] [facility] History [facility] o f Alcohol Comment [place] [facility] Exposure to Yes University of SARS-CoV-2 (event) [facility] Branch History of tobacco Cigarette Smoker University of use [facility] Branch Alcohol intake 2021-09-27 2021-09-27 Lifetime University of 00:00:00 00:00:00 non-drinker [facility] (finding) Branch Cigarettes smoked 2019-08-22 2019-08-22 Univers ity of current (pack per 00:00:00 00:00:00 ) - Reported Branch Tobacco use and 2019-08-22 2019-08-22 Smokeless Universit y of exposure 00:00:00 00:00:00 tobacco non-user [facility] dical Branch History SDOH 2019-08-22 2019-08-22 1 University o f Alcohol Frequency 00:00:00 00:00:00 [facility] [place] Sex Assigned At [birth year] Universit y of 00:00:00 00:00:00 [facility] Smoking Status Start Date Stop Date Source Smokes tobacco daily 2019-08-22 00:00:00 Univers ity of [facility] Medications Ordered Filled Start Stop Current Ordering Indication Dosage Frequency Signature Comments Components Source Medication Medication Date Date Medication? Clinician (SIG) Name Name PANTOPRAZOL Yes [id number] TAKE 1 Univers E 20 mg EC 9-07 TABLET BY ity of tablet 00:00: MOUTH [place] 00 EVERY DAY Medical Branch PANTOPRAZOL Yes [id number] TAKE 1 Univers E 20 mg EC 9-07 TABLET BY ity of tablet 00:00: MOUTH [place] 00 EVERY DAY Medical Branch PANTOPRAZOL Yes [id number] TAKE 1 Univers E 20 mg EC 9-07 TABLET BY ity of tablet 00:00: MOUTH [place] 00 EVERY DAY Medical Branch PANTOPRAZOL Yes [id number] TAKE 1 Univers E 20 mg EC 9-07 TABLET BY ity of tablet 00:00: MOUTH [place] 00 EVERY DAY Medical Branch escitalopra 2019- Yes 10mg Take 10 mg Univers m oxalate 2-07 by mouth ity of 10 mg 00:00: every [place] tablet 00 morning. Medical Branch terbinafine 2019- Yes 250mg Take 250 U nivers HCL 250 mg 2-07 mg by ity of tablet 00:00: mouth [place] 00 daily. Medical Branch escitalopra 2019- Yes 10mg Take 10 mg Univers m oxalate 2-07 by mouth ity of 10 mg 00:00: every [place] tablet 00 morning. Medical Branch terbinafine 2019- Yes 250mg Take 250 U nivers HCL 250 mg 2-07 mg by ity of tablet 00:00: mouth [place] 00 daily. Medical Branch escitalopra 2019- Yes 10mg Take 10 mg Univers m oxalate 2-07 by mouth ity of 10 mg 00:00: every [place] tablet 00 morning. Medical Branch terbinafine 2019- Yes 250mg Take 250 U nivers HCL 250 mg 2-07 mg by ity of tablet 00:00: mouth [place] 00 daily. Medical Branch escitalopra 2019- Yes 10mg Take 10 mg Univers m oxalate 2-07 by mouth ity of 10 mg 00:00: every [place] tablet 00 morning. Medical Branch terbinafine 2019-10 Yes 250mg Take 250 U nivers HCL 250 mg 2-07 mg by ity of tablet 00:00: mouth [place] 00 daily. Medical Branch QUEtiapine Yes 6.25mg Take 6.25 Univers 25 mg 9-17 mg by ity of tablet 00:00: mouth [place] 00 daily. Medical Branch QUEtiapine Yes 6.25mg Take 6.25 Univers 25 mg 9-17 mg by ity of tablet 00:00: mouth [place] 00 daily. Medical Branch QUEtiapine Yes 6.25mg Take 6.25 Univers 25 mg 9-17 mg by ity of tablet 00:00: mouth [place] 00 daily. Medical Branch QUEtiapine Yes 6.25mg Take 6.25 Univers 25 mg 9-17 mg by ity of tablet 00:00: mouth [place] 00 daily. Medical Branch Vital Signs Vital Name Observation Time Observation Value Comments Source Systolic blood 2021-09-27 20:42:00 116 mm[Hg] [facility] pressure [facility] Diastolic blood 2021-09-27 20:42:00 68 mm[Hg] [facility] 2021-09-27 20:42:00 85 /min [facility] Body temperature 2021-09-27 20:42:00 36.28 Sayra [facility] Respiratory rate 2021-09-27 20:42:00 16 /min [facility] Body height 2021-09-27 20:42:00 154.9 cm [facility] Body weight 2021-09-27 20:42:00 99.61 kg [facility] BMI 2021-09-27 20:42:00 41.49 kg/m2 [facility] Oxygen saturation in 2021-09-27 20:42:00 96 /min [facility] blood by [facility] [place] [facility] Pulse oximetry Branch Procedures Procedure Date / Time Performed Performing Clinician Veronique e ASSIGNMENT OF BENEFITS 2022-09-29 16:43:36 Doctor Unassigned, No University [facility] Name Medical Branch US ABDOMEN LIMITED 2021-10-17 19:17:30 [facility] 2021-10-17 18:35:32 Doctor Unassigned, No Un [facility] DIAGNOSIS AND Name [facility] Branch TREATMENT ASSIGNMENT OF BENEFITS 2021-10-17 18:35:18 Doctor Unassigned, No [facility] Encounters Start End Encounter Admission Attending Care Care Encounter Source Date/Time Date/Time Type Type Clinicians Facility Department ID 2021-08-[address] [facility] [id number] Univers 14:29:53 ity [facility] [place] [facility] 2021-08-06 [facility] LAZAR[facility] [id number] Univers 06:29:11 GORDON itkarissa [facility] [place] [facility] 2022-09-29 2022-09-29 Outpatient R RADIOLOGY [facility] [id number] Univers 10:44:21 23:59:00 ity [facility] [place] [facility] 2022-09-29 2022-09-29 Hospital Radiology [facility] [id number] Univers 10:44:21 23:59:00 Encounter STEPHEN [id number] ity of [place] [id number] [place] [id number] [facility] 800 Branch 2022-09-29 2022-09-29 Orders Doctor DANIELLA [id number] Univers 00:00:00 00:00:00 Only Unassigned, KHADIJAH [id number] ity of [facility] [id number] Philippe as [id number] [facility] 009 Branch 2021-10-17 2021-10-17 [facility] [id number] Univers 12:35:22 23:59:00 GORDON itkarissa [facility] [place] [facility] 2021-10-17 2021-10-17 [facility] [id number] Univers 12:35:22 23:59:00 Encounter Gordon STEPHEN [id number] ity [id number] [id number] [facility] 806 Branch 2021-09-27 2021-09-27 [facility] [id number] Univers 14:45:00 15:17:57 GORDON juan [facility] [place] [facility] 2021-09-27 2021-09-27 [facility] [id number] Univers 14:45:00 15:17:57 Visit Gordon ACEVEDO [id number] i ty [id number] [id number] Ga dical [address] 2021-06-03 2021-06-03 [facility]ill [facility] [id number] Univers 00:00:00 00:00:00 Gordon Acevedo [id number] i ty [id number] [phone] [address] 2021-04-28 2021-04-28 Outpatient R MIGUEL [facility] [id number] Univers 13:00:00 13:00:00 [facility] [place] [facility] 2021-03-22 2021-03-22 Outpatient R GENE [facility] [id number] Univers 15:30:00 15:30:00 GORDON [facility] 2020-10-22 2020-10-22 Outpatient R RADIOLOGY [facility] [id number] Univers 00:00:00 00:00:00 yessica [facility] [place] [facility] 2020-09-20 2020-09-20 Outpatient R GENE [facility] [id number] Univers 09:30:00 09:30:00 GORDON karissa [facility] [place] [facility] 2020-09-13 2020-09-13 Outpatient R GENE [facility] [id number] Univers 10:30:00 10:30:00 GORDON karissa [facility] [place] [facility] 2020-09-01 2020-09-01 Outpatient R GENE [facility] [id number] Univers 13:45:00 13:45:00 GORDON juan [facility] [place] [facility] 2020-05-31 2020-05-31 Outpatient R GENE [facility] [id number] Univers 09:30:00 09:30:00 GORDON juan [facility] [place] [facility] 2020-04-27 2020-04-27 Outpatient R BOB [facility] [id number] Univers 10:40:00 10:40:00 SHELLEY juan of [facility] Results This patient has no known results.
--- NOTE | 2023-04-20 06:51 | EDPHYS ---
Physician Documentation [facility] Name: Pilar Preston Age: 58 yrs Sex: Female : 1965 Arrival Date: 04/20/2023 Time: 06:20 Bed 19 Private MD: ED Physician Jeovanny Harris HPI: 04/20 06:42 This 58 yrs old Female presents to ER via Ambulatory with complaints of Sore rn Throat. 06:42 The patient presents with sore throat. The patient describes throat pain as raw, rn scratchy. Onset: The symptoms/episode began/occurred 3 day(s) ago. Severity of symptoms: At their worst the symptoms were moderate, in the emergency department the symptoms are unchanged. Modifying factors: The symptoms are alleviated by nothing, the symptoms are aggravated by swallowing. The patient has not experienced similar symptoms in the past. The patient has not recently seen a physician. Pt reports a few days of sore throat, seen by her physician, told has strep, put on zithromax, doesn't feel better. Reports increased pain and subjective swelling and neck hurting on right side. No fever. NO difficulty breathing. NO change in voice.. Historical: - Home Meds: 06:34 Seroquel Oral [Active]; kd3 - PSHx: 06:34 Total abdominal hysterectomy; kd3 - Immunization history:: Adult Immunizations up to date, Client reports having NOT received the Covid vaccine. - Social history:: Smoking status: Patient reports the use of cigarette tobacco products, smokes one-half pack cigarettes per day. - Family history:: not pertinent. - Hospitalizations: : No recent hospitalization is reported. ROS: 06:42 Constitutional: Negative for fever, chills, and weight loss, ENT: + sore throat Neck: + rn right anterior neck pain Cardiovascular: Negative for chest pain, palpitations, and edema, Respiratory: Negative for shortness of breath, cough, wheezing, and pleuritic chest pain, Abdomen/GI: Negative for abdominal pain, nausea, vomiting, diarrhea, and constipation, MS/Extremity: Negative for injury and deformity, Skin: Negative for injury, rash, and discoloration, Neuro: + headache Exam: 06:42 Constitutional: This is a well developed, well nourished patient who is awake, alert, rn and in no acute distress. Head/Face: Normocephalic, atraumatic. ENT: + tonsillar hypertrophy with exudate, uvula midline, no BOOM BOSS, no stridor, MMM Neck: + tender bialteral cervical LAD, no crepitus, no expansile mass Neuro: Awake and alert, GCS 15 Vital Signs: 06:31 BP 103 / 49; Pulse 84; Resp 16; Temp 98.4(O); Pulse Ox 97% on R/A; Weight 96.16 kg; kd3 Height 5 ft. 1 in. ; 06:54 BP 112 / 51; Pulse 82; Resp 16; Pulse Ox 98% on R/A; kd3 06:31 Body Mass Index 40.06 (96.16 kg, 154.94 cm) kd3 MDM: 06:41 Patient medically screened. rn 06:42 Differential diagnosis: group A strep tonsillitis, pharyngitis, tonsillitis, viral rn syndrome. Data reviewed: vital signs, nurses notes, and as a result, I will discharge patient. Counseling: I had a detailed discussion with the patient and/or guardian regarding: the historical points, exam findings, and any diagnostic results supporting the discharge/admit diagnosis, the need for outpatient follow up, to return to the emergency department if symptoms worsen or persist or if there are any questions or concerns that arise at home. ED course: No evidence of oral abscess, no crepitus or fullness of neck, + tender lymphadenopathy, no indication for surgery or emergent imaging at this time, not allergic to PCNs, will give rocephin and steroids and dc with augmentin. Return precautions given and understood. . Administered Medications: 06:54 Drug: Dexamethasone IM 10 mg Route: IM; Site: right gluteus; kd3 06:59 Follow up: Response: No adverse reaction kd3 06:54 Drug: Rocephin (cefTRIAXone) IM 1 grams Route: IM; Site: right gluteus; kd3 06:59 Follow up: Response: No adverse reaction kd3 Disposition Summary: 04/20/23 06:51 Discharge Ordered Location: Home rn Problem: new rn Symptoms: have improved rn Condition: Stable rn Diagnosis - Acute tonsillitis, unspecified rn Followup: rn - With: Private Physician - When: As needed - Reason: Recheck today's complaints, Re-evaluation by your physician Discharge Instructions: - Discharge Summary Sheet rn - Tonsillitis rn Forms: - Medication Reconciliation Form rn - Thank You Letter rn - Antibiotic director e learning - Prescription Opioid Use rn - Patient Portal Instructions rn Prescriptions: - Augmentin 875-125 mg Oral Tablet - take 1 tablet by ORAL route every 12 hours for 10 days; 20 tablet; Refills: 0, rn Product Selection Permitted Signatures: Dispatcher [employer] Jeovanny Mandujano MD MD rn Doucette, Kyli, RN RN kd3
--- NOTE | 2023-04-20 06:51 | ER ---
Nurse's Notes [facility] Name: Pilar Preston Age: 58 yrs Sex: Female : 1965 Arrival Date: 04/20/2023 Time: 06:20 Bed 19 Private MD: Diagnosis: Acute tonsillitis, unspecified Presentation: 04/20 06:31 Chief complaint: Patient states: I went to the doctor on Sunday with a headache and kd3 a sore throat and they sent me home with zithromax. but today I feel like the right side of my neck and ear are swollen and there are white patches on my tonsils. Coronavirus screen: Vaccine status: Patient reports being unvaccinated. Ebola Screen: No symptoms or risks identified at this time. Initial Sepsis Screen: Does the patient meet any 2 criteria? No. Patient's initial sepsis screen is negative. Does the patient have a suspected source of infection? No. Patient's initial sepsis screen is negative. Risk Assessment: Do you want to hurt yourself or someone else? Patient reports no desire to harm self or others. Onset of symptoms was April 20, 2023. 06:31 Method Of Arrival: Ambulatory kd3 06:31 Acuity: [place] 4 kd3 Triage Assessment: 06:34 General: Appears uncomfortable, Behavior is calm, cooperative. Pain: Complains of pain kd3 in left aspect of posterior pharynx and right aspect of posterior pharynx. EENT: Throat is reddened. Historical: - Home Meds: 06:34 Seroquel Oral [Active]; kd3 - PSHx: 06:34 Total abdominal hysterectomy; kd3 - Immunization history:: Adult Immunizations up to date, Client reports having NOT received the Covid vaccine. - Social history:: Smoking status: Patient reports the use of cigarette tobacco products, smokes one-half pack cigarettes per day. - Family history:: not pertinent. - Hospitalizations: : No recent hospitalization is reported. Screenin:55 [facility] ED Fall Risk Assessment (Adult) History of falling in the last 3 months, kd3 including since admission No falls in past 3 months (0 pts) Confusion or Disorientation No (0 pts) Intoxicated or Sedated No (0 pts) Impaired Gait No (0 pts) Mobility Assist Device Used No (0 pt) Altered Elimination No (0 pt) Score/Fall Risk Level 0 - 2 = Low Risk Maintained a safe environment. Abuse screen: Denies threats or abuse. Denies injuries from another. Nutritional screening: No deficits noted. Tuberculosis screening: No symptoms or risk factors identified. Assessment: 06:55 Respiratory: Airway is patent Respiratory effort is even, unlabored, Breath sounds are kd3 clear bilaterally. Vital Signs: 06:31 BP 103 / 49; Pulse 84; Resp 16; Temp 98.4(O); Pulse Ox 97% on R/A; Weight 96.16 kg; kd3 Height 5 ft. 1 in. ; 06:54 BP 112 / 51; Pulse 82; Resp 16; Pulse Ox 98% on R/A; kd3 06:31 Body Mass Index 40.06 (96.16 kg, 154.94 cm) kd3 ED Course: 06:23 Patient arrived in ED. ag3 06:31 Jennifer Baca, RN is Primary Nurse. kd3 06:34 Triage completed. kd3 06:35 Arm band placed on right wrist. kd3 06:39 Strep Sent. bc6 06:39 Flu Sent. bc6 06:39 COVID-19 SARS RT PCR Sent. bc6 06:41 Jeovanny Harris MD is Attending Physician. rn 06:55 Patient has correct armband on for positive identification. Provided Education on: . kd3 06:55 No provider procedures requiring assistance completed. Patient did not have IV access kd3 during this emergency room visit. Administered Medications: 06:54 Drug: Dexamethasone IM 10 mg Route: IM; Site: right gluteus; kd3 06:59 Follow up: Response: No adverse reaction kd3 06:54 Drug: Rocephin (cefTRIAXone) IM 1 grams Route: IM; Site: right gluteus; kd3 06:59 Follow up: Response: No adverse reaction kd3 Medication: 06:55 VIS not applicable for this client. kd3 Outcome: 06:51 Discharge ordered by . rn 06:55 Discharged to home ambulatory. kd3 06:55 Condition: stable 06:55 Discharge instructions given to patient, Instructed on discharge instructions, follow up and referral plans. Demonstrated understanding of instructions, follow-up care. 06:56 Discharge instructions given to patient, Instructed on discharge instructions, follow kd3 up and referral plans. medication usage, Demonstrated understanding of instructions, follow-up care, medications, Prescriptions given X 1. 06:59 Patient left the ED. kd3 Signatures: Jeovanny Harris MD MD rn Gomez, Alice 3 Jennifer Baca RN RN kd3 Radha Cruz 6
[2023-04-20] MEDS ORDERED: CEFTRIAXONE 1000 MG/VIAL ONE (06:58)
[2023-04-20] MEDS ORDERED: dexAMETHasone 10 MG/ML VIAL ONE (06:58)
[2023-04-20] MEDS ORDERED: WATER FOR INJ,STERILE 10 ML ONE (06:58)
[2023-04-20 07:47] VITALS: TEMP 98.4
[2023-04-20 07:48] VITALS: BP 112/51; O2SAT 98
== END 2023-04-20 06:59 | disposition home or self-care (01) ==
LOC: ER 06:20
DX: J03.90 Acute tonsillitis, unspecified (principal); F17.210 Nicotine dependence, cigarettes, uncomplicated
CPT/HCPCS: 96372; 99284; J1100; J0696